=== PATIENT | female | born 1930 | race Caucasian/White ===

== ENCOUNTER 2017-02-03 19:15 | Inpatient (IN) | payer MEDICARE, OTHER ==
[~2017-02-03] VITALS: Ht 149.9 cm; Wt 53.0 kg
[~2017-02-03 19:15] MED LIST: ALEN70TA15 PO; ATOR10TA23 PO; LISI-313 PO; METO-448 PO
[2017-02-03] MEDS ORDERED: ALBUTEROL 0.083% (NEB) 2.5 MG/3 ML AMP INH STA (20:23)
[2017-02-03 20:44] LABS: BASOPHIL # 0.1 10^3/ul (0.0-0.1); BASOPHILS % 0.7 % (0.0-2.0); EOSINOPHILS # 0.2 10^3/ul (0.0-0.5); HEMATOCRIT 38.9 % (37.0-47.0); HEMOGLOBIN 12.8 g/dl (12.0-16.0); LYMPHOCYTES # 3.5 10^3/ul (0.8-2.9); LYMPHOCYTES % 38.3 % (15.0-51.0); MEAN CORPUSCULAR HEMOGLOBIN 28.9 pg (29.0-33.0); MEAN CORPUSCULAR HGB CONC 32.9 g/dl (32.0-37.0); MEAN CORPUSCULAR VOLUME 87.8 fl (82.0-101.0); MEAN PLATELET VOLUME 9.3 fl (7.4-10.4); MONOCYTE # 1.1 10^3/ul (0.3-0.9); MONOCYTES % 12.3 % (0.0-11.0); NEUTROPHIL # 4.1 10^3/ul (1.6-7.5); PLATELET COUNT 275 10^3/UL (140-415); RED BLOOD COUNT 4.43 10^6/ul (4.20-5.40); RED CELL DISTRIBUTION WIDTH 14.5 % (11.5-14.5)
[2017-02-03 20:47] LABS: INR 0.95; PROTIME 12.7 Sec (12.2-14.2)
[2017-02-03 20:48] LABS: PARTIAL THROMBOPLASTIN TIME 29.3 Sec (25.0-35.0)
[2017-02-03 20:53] LABS: CALCIUM 10.2 mg/dl (8.4-10.2); CREATININE 1.23 mg/dl (0.44-1.00); POTASSIUM 4.3 mmol/L (3.5-5.1)
[2017-02-03] MEDS ORDERED: ALEN70TA30 PO (21:12)
[2017-02-03] MEDS ORDERED: CALC-84 PO (21:15)
[2017-02-03] MEDS ORDERED: METO25TA7 PO (21:16)
[2017-02-03] MEDS ORDERED: MULTI PO (21:16)
[2017-02-03] MEDS ORDERED: IODIXANOL LOCM 100 ML BTL ONE (21:33)
[2017-02-03] MEDS ORDERED: SOD CHLORIDE 0.9% 100 ML ONE (21:33)
--- NOTE | 2017-02-03 21:36 | RADRPT ---
PROCEDURE: XR Chest. CLINICAL INDICATION: Dyspnea. TECHNIQUE: Single frontal view of the chest. COMPARISON: None. FINDINGS: Cardiomegaly and atherosclerotic calcifications in the thoracic aorta. Bilateral mid lung and lung base atelectasis versus airspace disease, greater at the left lung base. Findings compatible with m ild to moderate failure. Likely at least moderate hiatal hernia which contains air. Left pleural ef fusion is small. No signs of pneumothorax are seen. The osseous structures and soft tissues are unre markable. IMPRESSION: 1. Mild to moderate failure, with small left pleural effusion. 2. Moderate air-filled hiatal hernia. RPTAT: [facility] Physician Ken Date Time Electronically viewed and signed by Physician Ken on 02/03/2017 21:36 RS/
[2017-02-03] MEDS ORDERED: FUROSEMIDE 40 MG INJ IV ONE (22:30)
--- NOTE | 2017-02-03 22:34 | ERA ---
ER Documentation Chief Complaint Date/Time DATE: 02/03/17 TIME: 22:31 Chief Complaint Cough with bloody sputum HPI This 86-year-old female complains of one-week of cough with bloody sputum. The patient states that she has some frothy type of sputum with blood streaks in it. She says she has had some night sweats and chills but no documented fever. She does have some exertional dyspnea on occasion but no orthopnea. No chest pain no abdominal pain diarrhea. ROS All systems reviewed and are negative except as per history of present illness. Medications Home Meds Reported Medications Metoprolol Succinate* (Toprol XL*) 25 Mg Tab.sr.24h, 25 MG PO DAILY, #30 TAB 02/03/17 Multivitamins* (Theragran*) 1 Tab Tab, 1 TAB PO DAILY, TAB 02/03/17 Calcium Carbonate-Vitamin D3 (Calcium 500 + D Tablet) 1 Each Tablet, 1 TAB PO BID, TAB 02/03/17 Alendronate Sodium* (Fosamax*) 70 Mg Tablet, 70 MG PO Q7D, #4 TAB Q SAT 02/03/17 Discontinued Reported Medications Metoprolol Tartrate* (Lopressor*) 25 Mg Tab, 1 TAB PO DAILY 06/22/12 Atorvastatin (Lipitor) 10 Mg Tablet, 1 TAB PO DAILY 06/22/12 Lisinopril* (Lisinopril*) 5 Mg Tablet, 1 TAB PO DAILY 06/22/12 Alendronate Sodium (Fosamax) 70 Mg Tablet, 1 TAB PO MONTHLY 06/22/12 Allergies Allergies: Coded Allergies: No Known Allergy (Unverified , 02/03/17) PMhx/Soc Medical and Surgical Hx: pt denies Surgical Hx History of Surgery: No Anesthesia Reaction: No Hx Neurological Disorder: No Hx Respiratory Disorders: No Hx Cardiac Disorders: No Hx Psychiatric Problems: No Hx Miscellaneous Medical Probl: Yes (KIDNEY PROBLEM) Hx Alcohol Use: No Hx Substance Use: No Hx Tobacco Use: No Smoking Status: Never smoker FmHx Family History: No coronary disease Physical Exam Vitals Vital Signs Date Time Temp Pulse Resp B/P Pulse Ox O2 Delivery O2 Flow Rate FiO2 02/03/17 22:03 100 18 144/65 95 02/03/17 20:53 75 18 94 21 02/03/17 19:18 97.8 92 18 118/92 93 Physical Exam Const: Well-developed, well-nourished Head: Atraumatic, normocephalic Eyes: Normal Conjunctiva, PERRLA, EOMI, normal sclera, no nystagmus ENT: Normal External Ears, Nose and Mouth, moist mucus membranes. Neck: Full range of motion. No meningismus, no lymphadenopathy. Resp: No increased work of breathing diffuse scattered rhonchi Cardio: Regular rate and rhythm, no murmurs, S1 S2 present Abd: Soft, non tender x 4, non distended. Normal bowel sounds, no guarding or rebound, no pulsitile abdominal masses or bruits Skin: No petechiae or rashes, no ecchymosis , no maculopapular rash Back: No midline or flank tenderness Ext: No cyanosis, or edema, FROM x 4, normal inspection, neurovascularly intact x 4 Neur: Awake and alert, STR 5/5 x 4, sensation intact x 4, no focal findings, cerebellum intact Psych: Normal Mood and Affect Result Diagram: 02/03/17201102/03/172011 Results 24 hrs Laboratory Tests Test 02/03/17 20:12 White Blood Count 9.010^3/ul Red Blood Count 4.4310^6/ul Hemoglobin 12.8g/dl Hematocrit 38.9% Mean Corpuscular Volume 87.8fl Mean Corpuscular Hemoglobin 28.9pg Mean Corpuscular Hemoglobin Concent 32.9g/dl Red Cell Distribution Width 14.5% Platelet Count 72906^3/UL Mean Platelet Volume 9.3fl Neutrophils % 46.0% Lymphocytes % 38.3% Monocytes % 12.3% Eosinophils % 2.0% Basophils % 0.7% Nucleated Red Blood Cells % 0.0/100WBC Neutrophils # 4.110^3/ul Lymphocytes # 3.510^3/ul Monocytes # 1.110^3/ul Eosinophils # 0.210^3/ul Basophils # 0.110^3/ul Nucleated Red Blood Cells # 0.010^3/ul Prothrombin Time 12.7Sec Prothrombin Time Ratio 1.0 INR International Normalized Ratio 0.95 Activated Partial Thromboplast Time 29.3Sec Sodium Level 141mmol/L Potassium Level 4.3mmol/L Chloride Level 99mmol/L Carbon Dioxide Level 28mmol/L Anion Gap 18 Blood Urea Nitrogen 26mg/dl Creatinine 1.23mg/dl Glucose Level 128mg/dl Calcium Level 10.2mg/dl Troponin I < 0.012ng/ml B-Type Natriuretic Peptide 226PG/ML Current Medications Medications (Trade) Dose Ordered Sig/Gardenia Route PRN Reason Start Time Stop Time Status Last Admin Dose Admin Albuterol (Proventil 0.083% (Neb)) 7.5 mg ONCE STAT INH 02/03/17 20:23 02/03/17 20:25 DC 02/03/17 20:53 IV Flush 10 ml 10 ml STK-MED ONCE .ROUTE 02/03/17 21:33 02/03/17 21:34 DC 02/03/17 21:51 Sodium Chloride (NS) 100 ml @ ud STK-MED ONCE .ROUTE 02/03/17 21:33 02/03/17 21:34 DC 02/03/17 21:51 Iodixanol (Visipaque Locm) 100 ml STK-MED ONCE .ROUTE 02/03/17 21:33 02/03/17 21:34 DC 02/03/17 21:51 Furosemide (Lasix) 40 mg ONCE ONCE IV 02/03/17 22:30 02/03/17 22:31 DC 02/03/17 22:49 Procedures/MDM PROCEDURE: XR Chest. CLINICAL INDICATION: Dyspnea. TECHNIQUE: Single frontal view of the chest. COMPARISON: None. FINDINGS: Cardiomegaly and atherosclerotic calcifications in the thoracic aorta. Bilateral mid lung and lung base atelectasis versus airspace disease, greater at the left lung base. Findings compatible with mild to moderate failure. Likely at least moderate hiatal hernia which contains air. Left pleural effusion is small. No signs of pneumothorax are seen. The osseous structures and soft tissues are unremarkable. IMPRESSION: 1. Mild to moderate failure, with small left pleural effusion. 2. Moderate air-filled hiatal hernia. RPTAT: [facility] Physician Ken Date Time Electronically viewed and signed by Physician Ken on 02/03/2017 21:36 RS/ CC: CHARLIE TOLEDO DO Patient has pulmonary edema on her chest x-ray. Will obtain a CT chest if her creatinine is okay This is to rule out an infectious process, i.e. pneumonia or TB possibly. We will give her a dose of Lasix 40 mg IV We will admit for CHF Room air oxygenation is 92% to 94% EKG: Rate/Rhythm: Normal sinus rhythm, left posterior fascicular block QRS, ST, QT: NORMAL MD, QRS, QT] Impression: Abnormal EKG Departure Diagnosis: Primary Impression: CHF (congestive heart failure) Qualified Code: I50.9 - Acute congestive heart failure, unspecified congestive heart failure type Additional Impression: Hypoxia Condition: Stable CHARLIE TOLEDO DO Feb 03, 2017 22:34
[2017-02-03 22:55] LABS: B-TYPE NATRIURETIC PEPTIDE 226 PG/ML (0-450)
[2017-02-03 22:58] LABS: TROPONIN-I < 0.012 ng/ml (0.00-0.12)
--- NOTE | 2017-02-03 23:04 | RADRPT ---
PROCEDURE: CTA chest with contrast utilizing the pulmonary embolus protocol. CLINICAL INDICATION: Dyspnea. TECHNIQUE: CT angiography of the chest was performed after the uneventful intravenous administratio n of 90 cc of Visipaque 320. Coronal and sagittal reformations were performed. 3-D/multiplanar refo rmations were performed by the technologist and at an independent workstation. The total exam CTDI e quals 8.45, 8.46 and the total exam DLP equals 263.49 mGy-cm. Evaluation is partially limited due to motion artifact. One or more of the following dose reduction techniques were used: - Automated exposure control. - Adjustment of the mA and/or kV according to patient size. - Use of iterative reconstruction technique. COMPARISON: Chest x-ray dated 02/03/2017. FINDINGS: Pulmonary vasculature: There are no filling defects through the level of the subsegmental pulmonary arteries. The main pulmonary artery is normal in caliber and there is no evidence of right heart st rain. Lungs, pleura, airways, and thoracic inlet: There is extensive ground-glass opacity throughout both lungs. There is patchy consolidation involving the posterior superior segment of both lower lobes a nd to a less degree within the basilar lower lobes. There is also patchy consolidation in the lingu la. There is no effusion or pneumothorax. The tracheobronchial tree is patent and normal in course and caliber. Cardiovascular system, mediastinum, and lymphatics: The heart is normal in size without pericardial thickening or effusion. There are coronary artery calcifications. There is a bovine aortic arch, a normal anatomical variant. There are atherosclerotic changes of the aorta, which is nonaneurysmal. There are calcified mediastinal lymph nodes, consistent with prior granulomatous disease. there is paratracheal and right hilar adenopathy. There is a large sliding hiatal hernia. Visualized upper abdomen: The visualized upper abdomen is unremarkable. Musculoskeletal system: There is moderate multilevel degenerative enthesopathy. There are no concer harshad osseous lesions. IMPRESSION: 1. No pulmonary emboli through the level of the subsegmental pulmonary arteries. 2. Extensive ground-glass opacity throughout both lungs with patchy areas of consolidation involvin g the superior segments of both lower lobes, lingula, and minimally in the basilar lower lobes. The se findings are most suggestive of multifocal pneumonia. 3. Hilar and mediastinal adenopathy, likely reactive in nature. 4. Large sliding hiatal hernia. 5. Coronary artery calcifications and atherosclerotic changes of the aorta. RPTAT: HLBP .Donn Tuttle MD, Date Time Electronically viewed and signed by .Donn Tuttle MD, on 02/03/2017 23:04 .P/
[2017-02-03] MEDS ORDERED: ONDANSETRON 4 MG INJ IV PRN (23:30)
[2017-02-03] MEDS ORDERED: ACETAMINOPHEN 325 MG TAB PO PRN (23:30)
[2017-02-04] VITALS (9 sets, daily range): BP systolic 101–148; BP diastolic 55–63; PULSE 77–107; RESP 18–22; Ht 149.9 cm; Wt 53.0 kg
[2017-02-04] MEDS ORDERED: ALBUTEROL/IPRATROPIUM (NEB) 3 ML AMP HHN PRN (05:30)
[2017-02-04] MEDS ORDERED: HYDROCODONE/APAP (5/325) TAB PO PRN (05:30)
[2017-02-04] MEDS ORDERED: ONDANSETRON 4 MG INJ IV PRN (05:30)
[2017-02-04] MEDS ORDERED: NACL 0.9% 3 ML SYG IV SCH (05:30)
[2017-02-04] MEDS ORDERED: VANCOMYCIN IV PER PHARMACY XX SCH (05:30)
[2017-02-04] MEDS ORDERED: ACETAMINOPHEN 325 MG TAB PO PRN (05:30)
[2017-02-04] MEDS ORDERED: morphine 4 MG/ML VIAL IV PRN (05:30)
[2017-02-04] MEDS ORDERED: LORAZEPAM 0.5 MG TAB PO PRN (05:30)
[2017-02-04] MEDS: PIPER-TAZO 3.375 GM IV (PMX) 100 ML IVPB SCH ×3 (05:48→23:04)
[2017-02-04] MEDS ORDERED: VANCOMYCIN 1 GM in NS 250 ML IVPB ONE (07:30)
[2017-02-04 07:52] LABS: ABNORMAL IP MESSAGE 1; HEMATOCRIT 41.9 % (37.0-47.0); HEMOGLOBIN 13.1 g/dl (12.0-16.0); MEAN CORPUSCULAR HEMOGLOBIN 27.7 pg (29.0-33.0); MEAN CORPUSCULAR HGB CONC 31.3 g/dl (32.0-37.0); MEAN CORPUSCULAR VOLUME 88.6 fl (82.0-101.0); MEAN PLATELET VOLUME 9.1 fl (7.4-10.4); NUCLEATED RED BLOOD CELLS% 0.9 /100WBC (0.0-0.0); PLATELET COUNT 236 10^3/UL (140-415); RED BLOOD COUNT 4.73 10^6/ul (4.20-5.40); RED CELL DISTRIBUTION WIDTH 14.8 % (11.5-14.5); WHITE BLOOD COUNT 2.2 10^3/ul (4.8-10.8)
[2017-02-04 08:05] LABS: POSITIVE DIFF @See below
[2017-02-04 08:14] LABS: CREATINE KINASE < 20 IU/L (23-200)
[2017-02-04 08:27] LABS: CK-MB < 0.22 ng/ml (0.0-2.4); TROPONIN-I < 0.012 ng/ml (0.00-0.12)
[2017-02-04 08:45] LABS: ALBUMIN 4.3 g/dl (3.3-4.9); ALBUMIN/GLOBULIN RATIO 1.19; BILIRUBIN,INDIRECT 0.4 mg/dl (0-1.1); BILIRUBIN,TOTAL 0.4 mg/dl (0.2-1.3); CREATININE 1.4 mg/dl (0.44-1.00); MAGNESIUM 2.1 mg/dl (1.7-2.5); POTASSIUM 4.2 mmol/L (3.5-5.1); TOTAL PROTEIN 7.9 g/dl (6.1-8.1)
--- NOTE | 2017-02-04 09:03 | HP ---
Date/Time of Note Date/Time of Note DATE: 02/04/17 TIME: 08:54 Assessment/Plan Assessment/Plan Assessment/Plan 1. Multifocal pneumonia - Broad-spectrum and IV antibiotics - will attempt to send sputum for Gram stain and culture - will check blood cultures as well - ID and pulmonary consult was needed 2. Presumed acute kidney injury: -Start IV fluid -Nephrology consult 3. CHF -We will obtain a 2D echo and place a cardiology consult 4. Hypertension: Blood pressure within goal -Antihypertensives as needed HPI/ROS Admit Date/Time Admit Date/Time Feb 03, 2017 at 23:22 Hx of Present Illness This is an 86-year-old female with a history of hypertension, CHF, probable renal insufficiency who presented to the emergency department complaining of cough and subjective fever/chills. Symptom began a week ago and has been progressively getting worse. Cough is at times productive with occasional streaks of blood. In the ER, CXR showed Mild to moderate failure, with small left pleural effusion. Moderate air-filled hiatal hernia. CT pulmonary angiogram shows Extensive ground-glass opacity throughout both lungs with patchy areas of consolidation involving the superior segments of both lower lobes, lingula, and minimally in the basilar lower lobes. These findings are most suggestive of multifocal pneumonia. Hilar and mediastinal adenopathy, likely reactive in nature. Large sliding hiatal hernia. Initial vitals were stable. Labs show a BUN of 26 and a creatinine of 1.23 otherwise CBC and BMP were within normal limits. WBC was 9.0. . PMH/Family/Social Social History Smoking Status: Never smoker Exam/Review of Systems Vital Signs Vitals Vital Signs Date Time Temp Pulse Resp B/P Pulse Ox O2 Delivery O2 Flow Rate FiO2 02/04/17 07:56 100.6 107 22 148/63 98 Nasal Cannula 2.0 02/03/17 20:53 21 Labs Result Diagram: 02/04/17 0725 02/04/17 0725 Medications Medications Current Medications Lorazepam (Ativan) 0.5 mg Q8H PRN PO ANXIETY; Start 02/04/17 at 05:30 Ondansetron HCl (Zofran Inj) 4 mg Q6H PRN IV NAUSEA AND/OR VOMITING; Start 02/04 at 05:30 Acetaminophen (Tylenol Tab) 650 mg Q6H PRN PO PAIN LEVEL 1-3 OR FEVER; Start at 05:30 Acetaminophen/ Hydrocodone Bitart ([place] (5/325)) 1 tab Q6H PRN PO PAIN LEVEL 4 -6; Start 02/04/17 at 05:30 Morphine Sulfate (morphine) 2 mg Q4H PRN IV PAIN LEVEL 7-10; Start 02/04/17 at 05:30 Heparin Sodium (Porcine) (Heparin (5000 Units/0.5 ml)) 5,000 unit Q12 SC ; Start 02/04/17 at 09:00 Multivitamins Therapeutic (Theragran) 1 tab DAILY PO ; Start 02/04/17 at 09:00 Calcium/Vitamin D 1 tab 1 tab BID PO ; Start 02/04/17 at 09:00 Piperacillin Sod/ Tazobactam Sod 100 ml @ 200 mls/hr Q8 IVPB Last administered on 02/04/17 05:48; Admin Dose 200 MLS/HR; Start 02/04/17 at 06:00 Vancomycin HCl 250 ml @ 125 mls/hr ONCE ONCE IVPB Last administered on 08:38; Admin Dose 125 MLS/HR; Start 02/04/17 at 07:30; Stop 02/04/17 at 09:29 Vancomycin HCl/ Sodium Chloride (Vancocin/NS) 150 ml @ 75 mls/hr Q24H IVPB ; Start 02/05/17 at 07:30 MEGAN HONG MD Feb 04, 2017 09:03
[2017-02-04 09:14] LABS: ANISOCYTOSIS 2+ (0-0); ERYTHROBLAST% (NRBC) (M) 5 % (0-0); GIANT THROMBO% (M) 2 % (0-0); MICROCYTOSIS 2+ (0-0); MONOCYTES % (M) 4 % (0-11); PLATELET ESTIMATE NORMAL; POLYCHROMASIA 3+ (0-0)
[2017-02-04] MEDS: MULTIVITAMINS THERAPEUTIC TAB PO SCH (10:22)
[2017-02-04] MEDS: CALCIUM/VITAMIN D (500/200) TAB PO SCH ×2 (10:22→20:29)
[2017-02-04] MEDS: HEPARIN 5,000 UNIT/0.5 ML VIAL SC SCH ×2 (10:23→20:36)
[2017-02-04] MEDS: ALBUMIN HUMAN 25% 100 ML IV SCH ×2 (11:17→19:43)
--- NOTE | 2017-02-04 11:51 | RADRPT ---
PROCEDURE: US Renal CLINICAL INDICATION: Acute renal insufficiency. TECHNIQUE: Multiple sonographic images of the kidneys and bladder were obtained. Evaluation of th e kidneys and bladder was performed as well with love scale and color and Doppler evaluation using a curved array transducer. The images were reviewed on a high-resolution PACS workstation. COMPARISON: No prior studies are available for comparison. FINDINGS: The right kidney measures 7.0 cm. The left kidney measures 7.5 cm. Kidneys are small and demonstrate echogenic renal cortex bilaterally There is no mass, calculus, or obstructive uropathy. No perinephric fluid collection is seen. Bladder is suboptimally distended. IMPRESSION: 1. Small echogenic kidneys consistent with medical renal disease. RPTAT: [facility] Physician Martin Date Time Electronically viewed and signed by Physician Martin on 02/04/2017 11:51 /
[2017-02-04 12:55] LABS: CREATINE KINASE 24 IU/L (23-200)
[2017-02-04 13:09] LABS: CK-MB < 0.22 ng/ml (0.0-2.4); TROPONIN-I < 0.012 ng/ml (0.00-0.12)
--- NOTE | 2017-02-04 13:10 | CONS ---
Date/Time of Note Date/Time of Note DATE: 02/04/17 TIME: 13:05 Assessment/Plan Assessment/Plan Additional Assessment/Plan Chest x-ray was reviewed from yesterday which is showing minimal patchy infiltrates in lung bases bilaterally. CT chest was reviewed also which is showing similar findings. Assessment recommendations; 1. Patient admitted with what appears to be bilateral lower lobe community- acquired bronchopneumonia. 2. History of renal insufficiency with mild elevation in serum creatinine. 3. Mild elevation in BNP level not indicative of CHF. Discontinue vancomycin. Continue Zosyn. Add Levaquin 250 mg IV daily. Patient will also need to have an echocardiogram done. Obtain follow-up chest x -ray in 48 hours. Consultation Date/Type/Reason Admit Date/Time Feb 03, 2017 at 23:22 Date of Consultation: Feb 04, 2017 Type of Consultation: Pulmonary Reason for Consultation Pulmonary consultation requested for evaluation of pneumonia. History of presenting any; patient is a very pleasant 86-year-old lady who was admitted yesterday with complaints of shortness of breath going on for the last few days. Patient also has been having some cough with low-grade fever. According to the patient's niece who was present in the room the patient was doing fine until the symptoms started 2 days ago and patient does not have any chronic respiratory illnesses. Patient is feeling somewhat better now denies any chest pain, denies any further fever or chills. Denies any wheezing. Any sputum production. No hemoptysis. Past medical history; next 1. Patient with history of hypertension. 2. History of renal failure in the past, not requiring hemodialysis. 3. No history of any known coronary artery disease or congestive heart failure. 4. No spinal surgeries. 5. Most of any diabetes, asthma or any history of pneumonia. Medications; reviewed. Allergies; none. Social history; patient never smoked. Family history; patient is a she has 1 son. 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 Review of systems; denies any headache, visual changes, sinus symptoms. Denies any chest pain, shortness of breath is improved. Denies any wheezing, hemoptysis or sputum production. Denies any abdominal pain, nausea vomiting. Denies any edema. Denies any melena, denies any urinary symptoms. Denies any weight loss. Denies any skin changes. General exam; elderly woman, awake and alert. Currently in no distress. Social History Smoking Status: Never smoker Exam/Review of Systems Vital Signs Vitals Vital Signs Date Time Temp Pulse Resp B/P Pulse Ox O2 Delivery O2 Flow Rate FiO2 02/04/17 12:45 92 20 128/56 95 Nasal Cannula 2.0 02/04/17 10:30 98.3 02/03/17 20:53 21 Exam HEENT exam; supple neck, no JVD. No lymphadenopathy. Midline trachea. No thyromegaly. Pharynx is clear. Patient wears dentures. Pupils are midsize and reactive to light bilaterally. Chest exam; diminished breath on lung bases with very minimal crackles at lung bases bilaterally. S1-S2 audible, no murmurs. Regular rhythm. Abdomen exam; soft, nondistended. No organomegaly. Bowel sounds audible. Extremity exam; no peripheral edema. Pulses 1+ bilaterally. No clubbing. SIGNALS OFFICER exam; no focal deficit. Results Result Diagram: 02/04/17 0725 02/04/17 0725 Results 24 hrs Laboratory Tests Test 02/03/17 20:12 02/04/17 07:25 02/04/17 12:20 White Blood Count 9.0 2.2 #L Red Blood Count 4.43 4.73 Hemoglobin 12.8 13.1 Hematocrit 38.9 41.9 Mean Corpuscular Volume 87.8 88.6 Mean Corpuscular Hemoglobin 28.9 L 27.7 L Mean Corpuscular Hemoglobin Concent 32.9 31.3 L Red Cell Distribution Width 14.5 14.8 H Platelet Count 275 236 Mean Platelet Volume 9.3 9.1 Neutrophils % 46.0 Lymphocytes % 38.3 Monocytes % 12.3 H Eosinophils % 2.0 Basophils % 0.7 Nucleated Red Blood Cells % 0.0 5 H Neutrophils # 4.1 Lymphocytes # 3.5 H Monocytes # 1.1 H Eosinophils # 0.2 Basophils # 0.1 Nucleated Red Blood Cells # 0.0 Prothrombin Time 12.7 Prothrombin Time Ratio 1.0 INR International Normalized Ratio 0.95 Activated Partial Thromboplast Time 29.3 Sodium Level 141 143 Potassium Level 4.3 4.2 Chloride Level 99 95 L Carbon Dioxide Level 28 26 Anion Gap 18 H 26 #H Blood Urea Nitrogen 26 H 25 H Creatinine 1.23 H 1.40 H Glucose Level 128 127 Calcium Level 10.2 10.0 Troponin I < 0.012 < 0.012 Pending B-Type Natriuretic Peptide 226 Segmented Neutrophils % (Manual) 18 L Band Neutrophils % (Manual) 5 H Lymphocytes % (Manual) 73 H Monocytes % (Manual) 4 Neutrophils # (Manual) 0.4 L Band Neutrophils # 0.1 Absolute Lymphocytes (Manual) 1.6 Absolute Monocytes (Manual) 0.0 L Smudge Cells % 4 H Thrombocytosis 2 H Platelet Estimate NORMAL Polychromasia 3+ Anisocytosis 2+ Microcytosis 2+ Magnesium Level 2.1 Total Bilirubin 0.4 Direct Bilirubin 0.00 Indirect Bilirubin 0.4 Aspartate Amino Transf (AST/SGOT) 33 Alanine Aminotransferase (ALT/SGPT) 29 Alkaline Phosphatase 77 Creatine Kinase < 20 L 24 Creatine Kinase Index Pending Creatinine Kinase MB (Mass) < 0.22 Pending Total Protein 7.9 Albumin 4.3 Globulin 3.60 H Albumin/Globulin Ratio 1.19 Medications Medications Current Medications Lorazepam (Ativan) 0.5 mg Q8H PRN PO ANXIETY; Start 02/04/17 at 05:30 Ondansetron HCl (Zofran Inj) 4 mg Q6H PRN IV NAUSEA AND/OR VOMITING; Start 02/04 at 05:30 Acetaminophen (Tylenol Tab) 650 mg Q6H PRN PO PAIN LEVEL 1-3 OR FEVER; Start at 05:30 Acetaminophen/ Hydrocodone Bitart ([place] (5/325)) 1 tab Q6H PRN PO PAIN LEVEL 4 -6; Start 02/04/17 at 05:30 Morphine Sulfate (morphine) 2 mg Q4H PRN IV PAIN LEVEL 7-10; Start 02/04/17 at 05:30 Heparin Sodium (Porcine) (Heparin (5000 Units/0.5 ml)) 5,000 unit Q12 SC Last administered on 02/04/17 10:23; Admin Dose 5,000 UNIT; Start 02/04/17 at 09:00 Multivitamins Therapeutic (Theragran) 1 tab DAILY PO Last administered on 10:22; Admin Dose 1 TAB; Start 02/04/17 at 09:00 Calcium/Vitamin D 1 tab 1 tab BID PO Last administered on 02/04/17 10:22; Admin Dose 1 TAB; Start 02/04/17 at 09:00 Piperacillin Sod/ Tazobactam Sod 100 ml @ 200 mls/hr Q8 IVPB Last administered on 02/04/17 05:48; Admin Dose 200 MLS/HR; Start 02/04/17 at 06:00 Albumin Human (Albumin Human 25%) 100 ml @ 100 mls/hr Q8H IV Last administered on 02/04/17 11:17; Admin Dose 100 MLS/HR; Start 02/04/17 at 11:00; Stop 02/05/17 at 03:59 ISIDRA SHEA Feb 04, 2017 13:10
--- NOTE | 2017-02-04 14:20 | CONS ---
DATE OF ADMISSION: 02/03/2017 DATE OF CONSULTATION: 02/04/2017 REASON FOR CONSULTATION: Acute kidney injury. REFERRING PHYSICIAN:: Dr. Eller HISTORY OF PRESENT ILLNESS: This is an 86-year-old female with a past medical history of hypertension, history of CHF, history of chronic kidney disease with unknown baseline creatinine, who presents to [facility] with complaints of cough, subjective fevers, chills. The patient's symptoms began about one week ago however, she progressively got worse with increased shortness of breath. As a result, she came to the emergency room for evaluation. Upon arrival, the patient had a chest x-ray, which initially showed [id number] failure. The patient had also had a CT angio which showed opacities throughout both lungs consistent with possible multifocal pneumonia. Other laboratory data drawn in the emergency room showed a white count 2.2, hemoglobin 13.1. Patient had a BUN of 26, creatinine 1.23. In the emergency room patient was given diuretic therapy and IV antibiotics. In terms of patient's renal history, per patient's family, she does have underlying CKD, does not does not know what her baseline renal function is. She has seen a kidney doctor but does not know the name of the sales representative [employer]. The patient denies any rashes, any frothy urine. PAST MEDICAL HISTORY: As stated above. History of CKD, history of CHF, history of hypertension. PAST SURGICAL HISTORY: None. ALLERGIES: NO KNOWN DRUG ALLERGIES. FAMILY HISTORY: Noncontributory. SOCIAL HISTORY: Does not drink, smoke, or do drugs. MEDICATION: The patient's medications have been reviewed. REVIEW OF SYSTEMS: Fourteen review of systems was conducted. Pertinent positives state in HPI, otherwise negative. PHYSICAL EXAMINATION: VITAL SIGNS: Blood pressure is 148/63, respirations 22, pulse 107, temperature 98.6. HEENT: Head is normocephalic. NECK: Supple. HEART: Regular rate. LUNGS: Diminished breath sounds at the base. ABDOMEN: Soft, nontender to palpation. No guarding. No rebound. EXTREMITIES: Negative for clubbing, cyanosis. No edema. DERMATOLOGIC: Clean. No rashes. MUSCULOSKELETAL: No joint effusion. NEUROLOGIC: No focal deficits. DATA: Laboratory data shows sodium 143, potassium 4.2, chloride 95, BUN 25, creatinine 1.40. White count 2.2, hemoglobin 13.1, hematocrit 41.9, platelet count 236. IMAGING: Imaging studies in HPI. ASSESSMENT AND PLAN: This is a 86-year-old female who presents with: 1. Nonoliguric acute kidney injury on top of chronic kidney disease with unknown baseline creatinine. Etiology of current CHUYITA may be multifactorial secondary to hemodynamics, questionable contrast- associated nephropathy. The patient did receive CT angio and diuretic therapy. Plan at this point is to do a full evaluation. Will check UA with microanalysis. Will check urine electrolytes. Will check renal ultrasound. Would recommend to hold diuretic therapy. Will give the patient gentle IV hydration with albumin. Otherwise continue supportive care. Renally dose medications. Avoid nephrotoxin. 2. Sepsis secondary to multifocal pneumonia. Continue current antibiotic regimen. Follow up cultures. 3. History of congestive heart failure. The patient's CT angio shows no evidence of overt heart failure. At this point, I would recommend to hold diuretic therapy. Will continue gentle IV fluids. Follow up 2D echo. Monitor closely. 4. History of hypertension. Continue current blood pressure regimen. 5. Thank you, Dr. Escalante, for this interesting consult. It will be a pleasure to follow patient with you throughout the hospital course. Dictated By: David Greenfield DO /[email or web address] /Document#: [id number]
--- NOTE | 2017-02-04 16:02 | RADRPT ---
Echocardiogram Report Patient Name: KEITH BURNS Gender: Female Date: 1930 Study Date: 04-Feb-2017 Care Coordination Manager: Vladimir Ma RUST Location: [facility] Ref. Physician: MEGAN HONG Quality: Technically Difficult Study Procedures: Transthoracic echocardiogram with complete 2D, M-Mode, and doppler examination. Indications: Congestive Heart Failure. 2D/M Mode Doppler Measurement Value Normal Ranges Measurement Value Normal Ranges LVIDd 2D 2.6 3.5 - 5.6 cm AV Peak Jonathan 1.8 m/sec LVIDs 2D 1.6 2.1 - 4.1 cm AV Peak PG 13.1 mmHg LVPWd 2D 1.0 0.6 - 1.1 cm LVOT Peak Jonathan 1.3 m/sec IVSd 2D 1.2 0.6 - 1.1 cm LVOT Peak PG 7.2 mmHg AoR Diam 2D 2.4 2.0 - 3.7 cm MV E Peak Jonathan 0.9 m/sec EDV 2D 23.7 cm3 MV A Peak Jonathan 1.0 m/sec ESV 2D 3.8 cm3 MV E/A 0.9 LA Dimen 2D 1.9 2.3 - 4.0 cm MV Decel Time 191 msec MV Decel [place] 5 MV E/A 0.9 TR Peak Jonathan 2.6 m/sec TR Peak PG 27.7 mmHg RVSP 31.0 mmHg Findings Left Ventricle: Normal left ventricular systolic function. Normal left ventricular cavity size. Mild concentric left ventricular hypertrophy. Ejection fraction is visually estimated at 6570 %. Tissue Doppler/Mitral Doppler indices are consistent with impaired relaxation (Stage I diastolic dysfunction). Right Ventricle: Normal right ventricular size. Normal right ventricular systolic function. Left Atrium: Not well visualized. Right Atrium: The right atrium is normal in size. Mitral Valve: Normal appearance and function of the mitral valve with trace physiologic regurgitation. Aortic Valve: Normal appearance of the aortic valve. No significant aortic stenosis or insufficiency. Tricuspid Valve: Normal appearance of the tricuspid valve. Estimated peak PA systolic pressure 31 mmHg. There is mild tricuspid regurgitation. Pulmonic Valve: Normal pulmonic valve appearance. There is trace pulmonic regurgitation. Pericardium: Normal pericardium with no significant pericardial effusion. Aorta: Normal aortic root. IVC: Normal size and normal respiratory collapse consistent with normal right atrial pressure. Conclusions 1.The left ventricle is normal in size and systolic function. 2.Estimated left ventricular ejection fraction of 65-70%. 3.Mild concentric left ventricular hypertrophy. Grade 1 diastolic dysfunction. Electronically Signed By: Vimal Dumont 04-Feb-2017 16:01:08 Patient Name: KEITH BURNS Study Date: 04-Feb-2017 [id number]
--- NOTE | 2017-02-04 16:36 | CONS ---
Date/Time of Note Date/Time of Note DATE: 02/04/17 TIME: 16:30 Assessment/Plan Assessment/Plan Chief Complaint/Hosp Course Assessment: Pneumonia - on antibiotics Chronic diastolic heart failure - status post diuretics, appears clinically euvolemic to dry Hypertension Acute kidney injury on chronic kidney disease Recommendations: -echocardiogram showed LVEF 65-70%, mild LVH, grade 1 diastolic dysfunction -hold off on additional diuresis -monitor blood pressure, resume anti-hypertensive medications as needed Problems: Consultation Date/Type/Reason Admit Date/Time Feb 03, 2017 at 23:22 Type of Consultation: Cardiology Reason for Consultation congestive heart failure Hx of Present Illness The patient is an 86 year-old female who presents with cough, subjective fevers , and chills. Chest CTA showed no evidence of pulmonary embolism, but did show evidence of multifocal pneumonia. 14 point review of systems negative other than per HPI. Past Medical History Congestive heart failure Hypertension Chronic kidney disease Past Surgical History Past Surgical Hx: no surgical history Family History Significant Family History: no pertinent family hx (noncontributory given advanced age) Social History Alcohol Use: none Smoking Status: Never smoker Drug Use: none Exam/Review of Systems Vital Signs Vitals Vital Signs Date Time Temp Pulse Resp B/P Pulse Ox O2 Delivery O2 Flow Rate FiO2 02/04/17 16:18 97.8 80 18 107/55 93 02/04/17 15:54 Nasal Cannula 2.0 02/03/17 20:53 21 Exam Constitutional: alert, well developed Psych: nl mood/affect, no complaints Head: atraumatic, normocephalic Eyes: nl conjunctiva, nl lids ENMT: nl external ears & nose, nl nasal mucosa & septum Neck: non-tender, supple, No jvd Respiratory: diminished breath sounds, No wheezing Cardiovascular: regular rate and rhythm, No murmurs/extra sounds Gastrointestinal: non-tender, soft Musculoskeletal: nl extremities to inspection Extremities: No clubbing, No cyanosis, No edema Neurological: nl mental status, nl speech Skin: nl turgor Results Result Diagram: 02/04/17 0725 02/04/17 0725 Results 24 hrs Laboratory Tests Test 02/03/17 20:12 02/04/17 07:25 02/04/17 12:20 White Blood Count 9.0 2.2 #L Red Blood Count 4.43 4.73 Hemoglobin 12.8 13.1 Hematocrit 38.9 41.9 Mean Corpuscular Volume 87.8 88.6 Mean Corpuscular Hemoglobin 28.9 L 27.7 L Mean Corpuscular Hemoglobin Concent 32.9 31.3 L Red Cell Distribution Width 14.5 14.8 H Platelet Count 275 236 Mean Platelet Volume 9.3 9.1 Neutrophils % 46.0 Lymphocytes % 38.3 Monocytes % 12.3 H Eosinophils % 2.0 Basophils % 0.7 Nucleated Red Blood Cells % 0.0 5 H Neutrophils # 4.1 Lymphocytes # 3.5 H Monocytes # 1.1 H Eosinophils # 0.2 Basophils # 0.1 Nucleated Red Blood Cells # 0.0 Prothrombin Time 12.7 Prothrombin Time Ratio 1.0 INR International Normalized Ratio 0.95 Activated Partial Thromboplast Time 29.3 Sodium Level 141 143 Potassium Level 4.3 4.2 Chloride Level 99 95 L Carbon Dioxide Level 28 26 Anion Gap 18 H 26 #H Blood Urea Nitrogen 26 H 25 H Creatinine 1.23 H 1.40 H Glucose Level 128 127 Calcium Level 10.2 10.0 Troponin I < 0.012 < 0.012 < 0.012 B-Type Natriuretic Peptide 226 Segmented Neutrophils % (Manual) 18 L Band Neutrophils % (Manual) 5 H Lymphocytes % (Manual) 73 H Monocytes % (Manual) 4 Neutrophils # (Manual) 0.4 L Band Neutrophils # 0.1 Absolute Lymphocytes (Manual) 1.6 Absolute Monocytes (Manual) 0.0 L Smudge Cells % 4 H Thrombocytosis 2 H Platelet Estimate NORMAL Polychromasia 3+ Anisocytosis 2+ Microcytosis 2+ Magnesium Level 2.1 Total Bilirubin 0.4 Direct Bilirubin 0.00 Indirect Bilirubin 0.4 Aspartate Amino Transf (AST/SGOT) 33 Alanine Aminotransferase (ALT/SGPT) 29 Alkaline Phosphatase 77 Creatine Kinase < 20 L 24 Creatine Kinase Index 0.9 Creatinine Kinase MB (Mass) < 0.22 < 0.22 Total Protein 7.9 Albumin 4.3 Globulin 3.60 H Albumin/Globulin Ratio 1.19 Medications Medications Current Medications Lorazepam (Ativan) 0.5 mg Q8H PRN PO ANXIETY; Start 02/04/17 at 05:30 Ondansetron HCl (Zofran Inj) 4 mg Q6H PRN IV NAUSEA AND/OR VOMITING; Start 02/04 at 05:30 Acetaminophen (Tylenol Tab) 650 mg Q6H PRN PO PAIN LEVEL 1-3 OR FEVER; Start at 05:30 Acetaminophen/ Hydrocodone Bitart ([place] (5/325)) 1 tab Q6H PRN PO PAIN LEVEL 4 -6; Start 02/04/17 at 05:30 Morphine Sulfate (morphine) 2 mg Q4H PRN IV PAIN LEVEL 7-10; Start 02/04/17 at 05:30 Heparin Sodium (Porcine) (Heparin (5000 Units/0.5 ml)) 5,000 unit Q12 SC Last administered on 02/04/17 10:23; Admin Dose 5,000 UNIT; Start 02/04/17 at 09:00 Multivitamins Therapeutic (Theragran) 1 tab DAILY PO Last administered on 10:22; Admin Dose 1 TAB; Start 02/04/17 at 09:00 Calcium/Vitamin D 1 tab 1 tab BID PO Last administered on 02/04/17 10:22; Admin Dose 1 TAB; Start 02/04/17 at 09:00 Piperacillin Sod/ Tazobactam Sod 100 ml @ 200 mls/hr Q8 IVPB Last administered on 02/04/17 14:09; Admin Dose 200 MLS/HR; Start 02/04/17 at 06:00 Albumin Human 100 ml @ 100 mls/hr Q8H IV Last administered on 02/04/17 11:17; Admin Dose 100 MLS/HR; Start 02/04/17 at 11:00; Stop 02/05/17 at 03:59 Levofloxacin/ Dextrose (Levaquin 250 Mg/ D5W 50 ml (Pmx)) 50 ml @ 50 mls/hr Q24H IVPB ; Start 02/04/17 at 14:30 MELISSA VELEZ MD Feb 04, 2017 16:36
[2017-02-04] MEDS: LEVOFLOXACIN 250MG/D5W (PMX) 50 ML IVPB SCH (18:03)
[2017-02-05] VITALS (13 sets, daily range): BP systolic 101–133; BP diastolic 55–68; PULSE 65–98; RESP 17–19
[2017-02-05] MEDS: ALBUMIN HUMAN 25% 100 ML IV SCH (06:03)
[2017-02-05] MEDS: PIPER-TAZO 3.375 GM IV (PMX) 100 ML IVPB SCH ×3 (06:03→21:29)
[2017-02-05] MEDS ORDERED: VANCOMYCIN 750 MG in SOD CHLORIDE 0.9% 150 ML IVPB SCH (07:30)
[2017-02-05 08:21] LABS: BASOPHILS % 0.2 % (0.0-2.0); EOSINOPHILS # 0.1 10^3/ul (0.0-0.5); EOSINOPHILS % 1.1 % (0.0-7.0); HEMATOCRIT 31.7 % (37.0-47.0); HEMOGLOBIN 10.1 g/dl (12.0-16.0); LYMPHOCYTES # 1.9 10^3/ul (0.8-2.9); MEAN CORPUSCULAR HEMOGLOBIN 27.8 pg (29.0-33.0); MEAN CORPUSCULAR HGB CONC 31.9 g/dl (32.0-37.0); MEAN CORPUSCULAR VOLUME 87.3 fl (82.0-101.0); MEAN PLATELET VOLUME 9.6 fl (7.4-10.4); MONOCYTE # 0.5 10^3/ul (0.3-0.9); MONOCYTES % 10.6 % (0.0-11.0); NEUTROPHIL # 2.1 10^3/ul (1.6-7.5); NEUTROPHILS % 45.9 % (39.0-77.0); PLATELET COUNT 163 10^3/UL (140-415); RED BLOOD COUNT 3.63 10^6/ul (4.20-5.40); RED CELL DISTRIBUTION WIDTH 14.6 % (11.5-14.5); WHITE BLOOD COUNT 4.5 10^3/ul (4.8-10.8)
[2017-02-05] MEDS: CALCIUM/VITAMIN D (500/200) TAB PO SCH ×2 (08:24→21:29)
[2017-02-05] MEDS: MULTIVITAMINS THERAPEUTIC TAB PO SCH (08:24)
[2017-02-05] MEDS: HEPARIN 5,000 UNIT/0.5 ML VIAL SC SCH ×2 (08:25→21:50)
[2017-02-05 08:40] LABS: CALCIUM 10.2 mg/dl (8.4-10.2); CREATININE 1.41 mg/dl (0.44-1.00); MAGNESIUM 2.2 mg/dl (1.7-2.5); PHOSPHORUS 3.9 mg/dl (2.5-4.9); POTASSIUM 3.7 mmol/L (3.5-5.1)
[2017-02-05 09:05] LABS: POSITIVE DIFF @See below
[2017-02-05] MEDS ORDERED: morphine 2 MG INJ IV PRN (11:00)
--- NOTE | 2017-02-05 13:28 | CONS ---
Date/Time of Note Date/Time of Note DATE: 02/05/17 TIME: 13:27 Assessment/Plan Assessment/Plan Chief Complaint/Hosp Course 1. Nonoliguric acute kidney injury on top of chronic kidney disease with unknown baseline creatinine. Etiology of current CHUYITA may be multifactorial secondary to hemodynamics, questionable contrast- associated nephropathy. The patient did receive CT angio and diuretic therapy. Plan at this point is to do a full evaluation. Will check UA with microanalysis. Will check urine electrolytes. Will check renal ultrasound. Would recommend to hold diuretic therapy. Will give the patient gentle IV hydration with albumin. Otherwise continue supportive care. Renally dose medications. Avoid nephrotoxin. 2. Sepsis secondary to multifocal pneumonia. Continue current antibiotic regimen. Follow up cultures. 3. History of congestive heart failure. The patient's CT angio shows no evidence of overt heart failure. At this point, I would recommend to hold diuretic therapy. Will continue gentle IV fluids. Follow up 2D echo. Monitor closely. 4. History of hypertension. Continue current blood pressure regimen. 5. Thank you, Dr. Escalante, for this interesting consult. It will be a pleasure to follow patient with you throughout the hospital course. Problems: Consultation Date/Type/Reason Admit Date/Time Feb 03, 2017 at 23:22 Initial Consult Date 02/04/17 Type of Consultation: nephrology 24 HR Interval Summary Free Text/Dictation pt. seen and examined seen by cards off diuretics, good uop. less sob Exam/Review of Systems Vital Signs Vitals Vital Signs Date Time Temp Pulse Resp B/P Pulse Ox O2 Delivery O2 Flow Rate FiO2 02/05/17 12:10 98 02/05/17 11:44 97.9 18 102/62 94 02/05/17 08:10 Nasal Cannula 1.0 02/03/17 20:53 21 Intake and Output 02/04/17 02/04/17 02/05/17 15:00 23:00 07:00 Intake Total 480 ml 100 ml Balance 480 ml 100 ml Exam Psych: nl mood/affect, no complaints Head: atraumatic, normocephalic Eyes: EOMI, PERRL, nl conjunctiva, nl lids, nl sclera ENMT: nl external ears & nose, nl lips & teeth, nl nasal mucosa & septum Neck: non-tender, supple Respiratory: diminished breath sounds Cardiovascular: nl pulses, regular rate and rhythm Gastrointestinal: nl liver, spleen, non-tender, soft Neurological: ORDER RUNNER II-XII intact, nl mental status, nl speech, nl strength Results Result Diagram: 02/05/17 0755 02/05/17 0755 Results 24 hrs Laboratory Tests Test 02/05/17 07:55 White Blood Count 4.5 #L Red Blood Count 3.63 #L Hemoglobin 10.1 #L Hematocrit 31.7 #L Mean Corpuscular Volume 87.3 Mean Corpuscular Hemoglobin 27.8 L Mean Corpuscular Hemoglobin Concent 31.9 L Red Cell Distribution Width 14.6 H Platelet Count 163 # Mean Platelet Volume 9.6 Neutrophils % 45.9 Lymphocytes % 42.0 Monocytes % 10.6 Eosinophils % 1.1 Basophils % 0.2 Nucleated Red Blood Cells % 0.0 Neutrophils # 2.1 Lymphocytes # 1.9 Monocytes # 0.5 Eosinophils # 0.1 Basophils # 0.0 Nucleated Red Blood Cells # 0.0 Sodium Level 143 Potassium Level 3.7 Chloride Level 97 Carbon Dioxide Level 28 Anion Gap 22 H Blood Urea Nitrogen 24 H Creatinine 1.41 H Glucose Level 93 Calcium Level 10.2 Phosphorus Level 3.9 Magnesium Level 2.2 Medications Medications Current Medications Lorazepam (Ativan) 0.5 mg Q8H PRN PO ANXIETY; Start 02/04/17 at 05:30 Ondansetron HCl (Zofran Inj) 4 mg Q6H PRN IV NAUSEA AND/OR VOMITING; Start 02/04 at 05:30 Acetaminophen (Tylenol Tab) 650 mg Q6H PRN PO PAIN LEVEL 1-3 OR FEVER; Start at 05:30 Acetaminophen/ Hydrocodone Bitart ([place] (5/325)) 1 tab Q6H PRN PO PAIN LEVEL 4 -6; Start 02/04/17 at 05:30 Heparin Sodium (Porcine) (Heparin (5000 Units/0.5 ml)) 5,000 unit Q12 SC Last administered on 02/05/17 08:25; Admin Dose 5,000 UNIT; Start 02/04/17 at 09:00 Multivitamins Therapeutic (Theragran) 1 tab DAILY PO Last administered on 08:24; Admin Dose 1 TAB; Start 02/04/17 at 09:00 Calcium/Vitamin D 1 tab 1 tab BID PO Last administered on 02/05/17 08:24; Admin Dose 1 TAB; Start 02/04/17 at 09:00 Piperacillin Sod/ Tazobactam Sod 100 ml @ 200 mls/hr Q8 IVPB Last administered on 02/05/17 06:03; Admin Dose 200 MLS/HR; Start 02/04/17 at 06:00 Levofloxacin/ Dextrose (Levaquin 250 Mg/ D5W 50 ml (Pmx)) 50 ml @ 50 mls/hr Q24H IVPB Last administered on 02/04/17 18:03; Admin Dose 50 MLS/HR; Start 02/04 at 14:30 Morphine Sulfate (morphine) 2 mg Q4H PRN IV PAIN LEVEL 7-10; Start 02/05/17 at 11:00 KENNY CANTOR MD Feb 05, 2017 13:28
[2017-02-05] MEDS: SOD CHLORIDE 0.9% 1,000 ML IV SCH (14:22)
[2017-02-05] MEDS: LEVOFLOXACIN 250MG/D5W (PMX) 50 ML IVPB SCH (14:22)
--- NOTE | 2017-02-05 17:21 | CONS ---
Date/Time of Note Date/Time of Note DATE: 02/05/17 TIME: 17:18 Consult Date/Type/Reason Admit Date/Time Feb 03, 2017 at 23:22 Initial Consult Date 02/04/17 Type of Consultation: Pulm Subjective No events. CTA reviewed in detail Objective Vital Signs Date Time Temp Pulse Resp B/P Pulse Ox O2 Delivery O2 Flow Rate FiO2 02/05/17 16:34 98.5 88 18 133/68 93 02/05/17 08:10 Nasal Cannula 1.0 02/03/17 20:53 21 Intake and Output 02/04/17 02/04/17 02/05/17 15:00 23:00 07:00 Intake Total 480 ml 100 ml Balance 480 ml 100 ml Exam HEENT: Neck supple; no JVD; no LAD CVS: RRR, S1 and S2 CHEST: Bibasilar rales ABD: Soft, NT, + BS EXT: No c/c/e Results/Medications Result Diagram: 02/05/17 0755 02/05/17 0755 Results 24 hrs Laboratory Tests Test 02/05/17 07:55 White Blood Count 4.5 #L Red Blood Count 3.63 #L Hemoglobin 10.1 #L Hematocrit 31.7 #L Mean Corpuscular Volume 87.3 Mean Corpuscular Hemoglobin 27.8 L Mean Corpuscular Hemoglobin Concent 31.9 L Red Cell Distribution Width 14.6 H Platelet Count 163 # Mean Platelet Volume 9.6 Neutrophils % 45.9 Lymphocytes % 42.0 Monocytes % 10.6 Eosinophils % 1.1 Basophils % 0.2 Nucleated Red Blood Cells % 0.0 Neutrophils # 2.1 Lymphocytes # 1.9 Monocytes # 0.5 Eosinophils # 0.1 Basophils # 0.0 Nucleated Red Blood Cells # 0.0 Sodium Level 143 Potassium Level 3.7 Chloride Level 97 Carbon Dioxide Level 28 Anion Gap 22 H Blood Urea Nitrogen 24 H Creatinine 1.41 H Glucose Level 93 Calcium Level 10.2 Phosphorus Level 3.9 Magnesium Level 2.2 Medications Current Medications Lorazepam (Ativan) 0.5 mg Q8H PRN PO ANXIETY; Start 02/04/17 at 05:30 Ondansetron HCl (Zofran Inj) 4 mg Q6H PRN IV NAUSEA AND/OR VOMITING; Start 02/04 at 05:30 Acetaminophen (Tylenol Tab) 650 mg Q6H PRN PO PAIN LEVEL 1-3 OR FEVER; Start at 05:30 Acetaminophen/ Hydrocodone Bitart ([place] (5/325)) 1 tab Q6H PRN PO pain 4-10; Start 02/04/17 at 05:30 Heparin Sodium (Porcine) (Heparin (5000 Units/0.5 ml)) 5,000 unit Q12 SC Last administered on 02/05/17 08:25; Admin Dose 5,000 UNIT; Start 02/04/17 at 09:00 Multivitamins Therapeutic (Theragran) 1 tab DAILY PO Last administered on 08:24; Admin Dose 1 TAB; Start 02/04/17 at 09:00 Calcium/Vitamin D 1 tab 1 tab BID PO Last administered on 02/05/17 08:24; Admin Dose 1 TAB; Start 02/04/17 at 09:00 Piperacillin Sod/ Tazobactam Sod 100 ml @ 200 mls/hr Q8 IVPB Last administered on 02/05/17 13:38; Admin Dose 200 MLS/HR; Start 02/04/17 at 06:00 Levofloxacin/ Dextrose 50 ml @ 50 mls/hr Q24H IVPB Last administered on 14:22; Admin Dose 50 MLS/HR; Start 02/04/17 at 14:30 Sodium Chloride (NS) 1,000 ml @ 80 mls/hr [id number] IV Last administered on 14:22; Admin Dose 80 MLS/HR; Start 02/05/17 at 14:30 Assessment/Plan Additional Assessment/Plan IMP: 1. Bilateral posterior ground glass opacities and reticulations--consistent with chronic aspiration due to massive hiatal hernia. Cannot exclude underlying ILD such as [place] Lung RECS: 1. De-escalate abx 2. Strict aspiration precautions 3. Daily PPI ELEANOR BAIRD MD Feb 05, 2017 17:21
[2017-02-05] MEDS: ALBUTEROL/IPRATROPIUM (NEB) 3 ML AMP HHN SCH (20:13)
--- NOTE | 2017-02-05 21:55 | CONS ---
Date/Time of Note Date/Time of Note DATE: 02/05/17 TIME: 21:54 Assessment/Plan Assessment/Plan Chief Complaint/Hosp Course Assessment: Pneumonia - on antibiotics Chronic diastolic heart failure - status post diuretics, appears clinically euvolemic to dry Hypertension Acute kidney injury on chronic kidney disease Recommendations: -echocardiogram showed LVEF 65-70%, mild LVH, grade 1 diastolic dysfunction -hold off on additional diuresis -monitor blood pressure, resume anti-hypertensive medications as needed Problems: Consultation Date/Type/Reason Admit Date/Time Feb 03, 2017 at 23:22 Initial Consult Date 02/04/17 Type of Consultation: Cardiology 24 HR Interval Summary Free Text/Dictation No acute events. Denies shortness of breath. Detailed Summary Additional Comments 14 point review of systems without changes. Exam/Review of Systems Vital Signs Vitals Vital Signs Date Time Temp Pulse Resp B/P Pulse Ox O2 Delivery O2 Flow Rate FiO2 02/05/17 20:28 86 02/05/17 20:16 94 Nasal Cannula 2.0 02/05/17 19:51 97.8 19 123/60 02/03/17 20:53 21 Intake and Output 02/04/17 02/04/17 02/05/17 15:00 23:00 07:00 Intake Total 480 ml 100 ml Balance 480 ml 100 ml Exam Constitutional: alert, well developed Psych: nl mood/affect, no complaints Head: atraumatic, normocephalic Eyes: nl conjunctiva, nl lids ENMT: nl external ears & nose, nl nasal mucosa & septum Neck: non-tender, supple, No jvd Respiratory: diminished breath sounds, No wheezing Cardiovascular: regular rate and rhythm, No murmurs/extra sounds Gastrointestinal: non-tender, soft Musculoskeletal: nl extremities to inspection Extremities: No clubbing, No cyanosis, No edema Neurological: nl mental status, nl speech Skin: nl turgor Results Result Diagram: 02/05/17 0755 02/05/17 0755 Results 24 hrs Laboratory Tests Test 02/05/17 07:55 White Blood Count 4.5 #L Red Blood Count 3.63 #L Hemoglobin 10.1 #L Hematocrit 31.7 #L Mean Corpuscular Volume 87.3 Mean Corpuscular Hemoglobin 27.8 L Mean Corpuscular Hemoglobin Concent 31.9 L Red Cell Distribution Width 14.6 H Platelet Count 163 # Mean Platelet Volume 9.6 Neutrophils % 45.9 Lymphocytes % 42.0 Monocytes % 10.6 Eosinophils % 1.1 Basophils % 0.2 Nucleated Red Blood Cells % 0.0 Neutrophils # 2.1 Lymphocytes # 1.9 Monocytes # 0.5 Eosinophils # 0.1 Basophils # 0.0 Nucleated Red Blood Cells # 0.0 Sodium Level 143 Potassium Level 3.7 Chloride Level 97 Carbon Dioxide Level 28 Anion Gap 22 H Blood Urea Nitrogen 24 H Creatinine 1.41 H Glucose Level 93 Calcium Level 10.2 Phosphorus Level 3.9 Magnesium Level 2.2 Medications Medications Current Medications Lorazepam (Ativan) 0.5 mg Q8H PRN PO ANXIETY; Start 02/04/17 at 05:30 Ondansetron HCl (Zofran Inj) 4 mg Q6H PRN IV NAUSEA AND/OR VOMITING; Start 02/04 at 05:30 Acetaminophen (Tylenol Tab) 650 mg Q6H PRN PO PAIN LEVEL 1-3 OR FEVER; Start at 05:30 Acetaminophen/ Hydrocodone Bitart ([place] (5/325)) 1 tab Q6H PRN PO pain 4-10; Start 02/04/17 at 05:30 Heparin Sodium (Porcine) (Heparin (5000 Units/0.5 ml)) 5,000 unit Q12 SC Last administered on 02/05/17 21:50; Admin Dose 5,000 UNIT; Start 02/04/17 at 09:00 Multivitamins Therapeutic (Theragran) 1 tab DAILY PO Last administered on 08:24; Admin Dose 1 TAB; Start 02/04/17 at 09:00 Calcium/Vitamin D 1 tab 1 tab BID PO Last administered on 02/05/17 21:29; Admin Dose 1 TAB; Start 02/04/17 at 09:00 Piperacillin Sod/ Tazobactam Sod 100 ml @ 200 mls/hr Q8 IVPB Last administered on 02/05/17 21:29; Admin Dose 200 MLS/HR; Start 02/04/17 at 06:00 Levofloxacin/ Dextrose 50 ml @ 50 mls/hr Q24H IVPB Last administered on 14:22; Admin Dose 50 MLS/HR; Start 02/04/17 at 14:30 Sodium Chloride (NS) 1,000 ml @ 80 mls/hr [id number] IV Last administered on t 14:22; Admin Dose 80 MLS/HR; Start 02/05/17 at 14:30 MELISSA VELEZ MD Feb 05, 2017 21:55
[2017-02-06] VITALS (12 sets, daily range): BP systolic 97–134; BP diastolic 55–71; PULSE 74–103; RESP 16–19
[2017-02-06] MEDS: SOD CHLORIDE 0.9% 1,000 ML IV SCH (03:00)
[2017-02-06] MEDS: PIPER-TAZO 3.375 GM IV (PMX) 100 ML IVPB SCH (06:07)
[2017-02-06 08:07] LABS: BASOPHILS % 0.8 % (0.0-2.0); EOSINOPHILS # 0.1 10^3/ul (0.0-0.5); EOSINOPHILS % 1.5 % (0.0-7.0); HEMATOCRIT 34.5 % (37.0-47.0); LYMPHOCYTES # 2.6 10^3/ul (0.8-2.9); LYMPHOCYTES % 49.7 % (15.0-51.0); MEAN CORPUSCULAR HEMOGLOBIN 28.1 pg (29.0-33.0); MEAN CORPUSCULAR HGB CONC 31.9 g/dl (32.0-37.0); MEAN CORPUSCULAR VOLUME 88.2 fl (82.0-101.0); MEAN PLATELET VOLUME 9.7 fl (7.4-10.4); MONOCYTES % 13.4 % (0.0-11.0); NEUTROPHILS % 34.4 % (39.0-77.0); PLATELET COUNT 175 10^3/UL (140-415); RED BLOOD COUNT 3.91 10^6/ul (4.20-5.40); RED CELL DISTRIBUTION WIDTH 14.8 % (11.5-14.5); WHITE BLOOD COUNT 5.3 10^3/ul (4.8-10.8)
[2017-02-06 08:11] LABS: POSITIVE DIFF @See below
[2017-02-06] MEDS: CALCIUM/VITAMIN D (500/200) TAB PO SCH ×2 (08:11→21:36)
[2017-02-06] MEDS: MULTIVITAMINS THERAPEUTIC TAB PO SCH (08:11)
[2017-02-06] MEDS: HEPARIN 5,000 UNIT/0.5 ML VIAL SC SCH ×2 (08:12→21:43)
[2017-02-06] MEDS: ALBUTEROL/IPRATROPIUM (NEB) 3 ML AMP HHN SCH ×3 (08:28→19:55)
[2017-02-06 08:39] LABS: CALCIUM 9.7 mg/dl (8.4-10.2); CREATININE 1.34 mg/dl (0.44-1.00); PHOSPHORUS 3.8 mg/dl (2.5-4.9); POTASSIUM 3.6 mmol/L (3.5-5.1)
[2017-02-06 10:52] LABS: BASOPHIL # 0.1 10^3/ul (0.0-0.1); MONOCYTE # 0.6 10^3/ul (0.3-0.9); MONOCYTES % (M) 11 % (0-11); NEUTROPHIL # 1.7 10^3/ul (1.6-7.5); REACTIVE LYMPHOCYTES% (M) 3 % (0-0)
[2017-02-06] MEDS: PANTOPRAZOLE (EC) 40 MG TAB PO SCH (12:12)
[2017-02-06] MEDS: METOPROLOL (XL) 25 MG TAB PO SCH (12:12)
[2017-02-06] MEDS: LEVOFLOXACIN 250 MG TAB PO SCH (12:12)
--- NOTE | 2017-02-06 13:04 | PN ---
Date/Time of Note Date/Time of Note DATE: 02/06/17 TIME: 13:03 Assessment/Plan VTE Prophylaxis VTE Prophylaxis Intervention: SCD's Lines/Catheters IV Catheter Type (from Nrs): Peripheral IV Urinary Cath still in place: No Assessment/Plan Chief Complaint/Hosp Course Patient is 86-year-old female who presents with a past medical history of hypertension, CHF who presents to [facility] complaining of cough and subjective fever with chills found to have multifocal pneumonia. Specimen and problem list Multifocal pneumonia Diastolic dysfunction Hypertension Renal insufficiency Hypernatremia, mild Leukopenia, transient Anemia Plan -De-escalate antibiotics, now on p.o. Levaquin -Patient became tachycardic to the 150s with movement shortness of breath, patient not on home metoprolol, restarting home metoprolol monitor closely -Start Protonix for hiatal hernia -Continue other home meds -As needed medication for pain -Breathing treatments Problems: Subjective 24 Hr Interval Summary Free Text/Dictation no acute complaints Exam/Review of Systems Vital Signs Vitals Vital Signs Date Time Temp Pulse Resp B/P Pulse Ox O2 Delivery O2 Flow Rate FiO2 02/06/17 12:10 98.1 104 18 97/55 98 02/06/17 08:29 2.0 02/06/17 08:29 Nasal Cannula 02/03/17 20:53 21 Intake and Output 02/05/17 02/05/17 02/06/17 15:00 23:00 07:00 Intake Total 300 ml 750 ml 1220 ml Balance 300 ml 750 ml 1220 ml Exam Physical exam General: Patient is laying in bed and answers questions appropriately Mentation: Patient is alert and oriented 4, Head: Normocephalic atraumatic Eyes: EOMI, pupils reactive to light Neck: Supple, nontender, midline Respiratory: coarse to auscultation in the RLL Cardiovascular: regular rate, no obvious murmurs Gastrointestinal: non-tender to palpation, bowel sounds heard. Neurological: Moves all extremities spontaneously Skin: No new skin lesions Results Result Diagram: 02/06/17 0655 02/06/17 0655 Results 24 hrs Laboratory Tests Test 02/06/17 06:55 White Blood Count 5.3 Red Blood Count 3.91 L Hemoglobin 11.0 L Hematocrit 34.5 L Mean Corpuscular Volume 88.2 Mean Corpuscular Hemoglobin 28.1 L Mean Corpuscular Hemoglobin Concent 31.9 L Red Cell Distribution Width 14.8 H Platelet Count 175 Mean Platelet Volume 9.7 Neutrophils % 34.4 L Segmented Neutrophils % (Manual) 33 L Band Neutrophils % (Manual) 2 Lymphocytes % 49.7 Lymphocytes % (Manual) 49 Reactive Lymphocytes % (Manual) 3 H Monocytes % 13.4 H Monocytes % (Manual) 11 Eosinophils % 1.5 Eosinophils % (Manual) 1.0 Basophils % 0.8 Nucleated Red Blood Cells % 0.0 Neutrophils # 1.7 Neutrophils # (Manual) 1.8 Band Neutrophils # 0.1 Absolute Lymphocytes (Manual) 2.5 Lymphocytes # 2.6 Reactive Lymphocytes # 0.1 H Monocytes # 0.6 Absolute Monocytes (Manual) 0.5 Eosinophils # 0.1 Basophils # 0.1 Nucleated Red Blood Cells # 0.0 Sodium Level 145 H Potassium Level 3.6 Chloride Level 103 Carbon Dioxide Level 26 Anion Gap 20 H Blood Urea Nitrogen 19 Creatinine 1.34 H Glucose Level 90 Calcium Level 9.7 Phosphorus Level 3.8 Magnesium Level 2.0 Medications Medications Current Medications Lorazepam (Ativan) 0.5 mg Q8H PRN PO ANXIETY; Start 02/04/17 at 05:30 Ondansetron HCl (Zofran Inj) 4 mg Q6H PRN IV NAUSEA AND/OR VOMITING; Start 02/04 at 05:30 Acetaminophen (Tylenol Tab) 650 mg Q6H PRN PO PAIN LEVEL 1-3 OR FEVER; Start at 05:30 Acetaminophen/ Hydrocodone Bitart ([place] (5/325)) 1 tab Q6H PRN PO pain 4-10; Start 02/04/17 at 05:30 Heparin Sodium (Porcine) (Heparin (5000 Units/0.5 ml)) 5,000 unit Q12 SC Last administered on 02/06/17 08:12; Admin Dose 5,000 UNIT; Start 02/04/17 at 09:00 Multivitamins Therapeutic (Theragran) 1 tab DAILY PO Last administered on 08:11; Admin Dose 1 TAB; Start 02/04/17 at 09:00 Calcium/Vitamin D ([place]/ Vit-D (500/200)) 1 tab BID PO Last administered on 02/06/17 08:11; Admin Dose 1 TAB; Start 02/04/17 at 09:00 Levofloxacin (Levaquin) 250 mg DAILY@06 PO Last administered on 02/06/17 12:12 ; Admin Dose 250 MG; Start 02/06/17 at 12:00 Metoprolol Succinate (Toprol Xl) 25 mg DAILY PO Last administered on 02/06/17 12:12; Admin Dose 25 MG; Start 02/06/17 at 11:30 Pantoprazole (Protonix Tab) 40 mg DAILY@06 PO Last administered on 02/06/17 12: 12; Admin Dose 40 MG; Start 02/06/17 at 11:30 DESTIN HYATT Feb 06, 2017 13:04
--- NOTE | 2017-02-06 13:06 | CONS ---
Date/Time of Note Date/Time of Note DATE: 02/06/17 TIME: 13:05 Assessment/Plan Assessment/Plan Chief Complaint/Hosp Course 1. Nonoliguric acute kidney injury on top of chronic kidney disease with unknown baseline creatinine. Etiology of current CHUYITA may be multifactorial secondary to hemodynamics, questionable contrast- associated nephropathy. The patient did receive CT angio and diuretic therapy. Plan at this point is to do a full evaluation. Will check UA with microanalysis. Will check urine electrolytes. Will check renal ultrasound. Would recommend to hold diuretic therapy. Will give the patient gentle IV hydration with albumin. Otherwise continue supportive care. Renally dose medications. Avoid nephrotoxin. 2. Sepsis secondary to multifocal pneumonia. Continue current antibiotic regimen. Follow up cultures. 3. History of congestive heart failure. The patient's CT angio shows no evidence of overt heart failure. At this point, I would recommend to hold diuretic therapy. Will continue gentle IV fluids. Follow up 2D echo. Monitor closely. 4. History of hypertension. Continue current blood pressure regimen. Problems: Consultation Date/Type/Reason Admit Date/Time Feb 03, 2017 at 23:22 Initial Consult Date 02/04/17 Type of Consultation: nephrology 24 HR Interval Summary Free Text/Dictation pt. seen and examined good uop renal fxn stable Exam Constitutional: alert, well developed Psych: nl mood/affect, no complaints Head: atraumatic, normocephalic Eyes: nl conjunctiva, nl lids ENMT: nl external ears & nose, nl nasal mucosa & septum Neck: non-tender, supple, No jvd Respiratory: diminished breath sounds, No wheezing Cardiovascular: regular rate and rhythm, No murmurs/extra sounds Gastrointestinal: non-tender, soft Musculoskeletal: nl extremities to inspection Extremities: No clubbing, No cyanosis, No edema Neurological: nl mental status, nl speech Skin: nl turgor Exam/Review of Systems Vital Signs Vitals Vital Signs Date Time Temp Pulse Resp B/P Pulse Ox O2 Delivery O2 Flow Rate FiO2 02/06/17 12:10 98.1 104 18 97/55 98 02/06/17 08:29 2.0 02/06/17 08:29 Nasal Cannula 02/03/17 20:53 21 Intake and Output 02/05/17 02/05/17 02/06/17 15:00 23:00 07:00 Intake Total 300 ml 750 ml 1220 ml Balance 300 ml 750 ml 1220 ml Results Result Diagram: 02/06/17 0655 02/06/17 0655 Results 24 hrs Laboratory Tests Test 02/06/17 06:55 White Blood Count 5.3 Red Blood Count 3.91 L Hemoglobin 11.0 L Hematocrit 34.5 L Mean Corpuscular Volume 88.2 Mean Corpuscular Hemoglobin 28.1 L Mean Corpuscular Hemoglobin Concent 31.9 L Red Cell Distribution Width 14.8 H Platelet Count 175 Mean Platelet Volume 9.7 Neutrophils % 34.4 L Segmented Neutrophils % (Manual) 33 L Band Neutrophils % (Manual) 2 Lymphocytes % 49.7 Lymphocytes % (Manual) 49 Reactive Lymphocytes % (Manual) 3 H Monocytes % 13.4 H Monocytes % (Manual) 11 Eosinophils % 1.5 Eosinophils % (Manual) 1.0 Basophils % 0.8 Nucleated Red Blood Cells % 0.0 Neutrophils # 1.7 Neutrophils # (Manual) 1.8 Band Neutrophils # 0.1 Absolute Lymphocytes (Manual) 2.5 Lymphocytes # 2.6 Reactive Lymphocytes # 0.1 H Monocytes # 0.6 Absolute Monocytes (Manual) 0.5 Eosinophils # 0.1 Basophils # 0.1 Nucleated Red Blood Cells # 0.0 Sodium Level 145 H Potassium Level 3.6 Chloride Level 103 Carbon Dioxide Level 26 Anion Gap 20 H Blood Urea Nitrogen 19 Creatinine 1.34 H Glucose Level 90 Calcium Level 9.7 Phosphorus Level 3.8 Magnesium Level 2.0 Medications Medications Current Medications Lorazepam (Ativan) 0.5 mg Q8H PRN PO ANXIETY; Start 02/04/17 at 05:30 Ondansetron HCl (Zofran Inj) 4 mg Q6H PRN IV NAUSEA AND/OR VOMITING; Start 02/04 at 05:30 Acetaminophen (Tylenol Tab) 650 mg Q6H PRN PO PAIN LEVEL 1-3 OR FEVER; Start at 05:30 Acetaminophen/ Hydrocodone Bitart ([place] (5/325)) 1 tab Q6H PRN PO pain 4-10; Start 02/04/17 at 05:30 Heparin Sodium (Porcine) (Heparin (5000 Units/0.5 ml)) 5,000 unit Q12 SC Last administered on 02/06/17t 08:12; Admin Dose 5,000 UNIT; Start 02/04/17 at 09:00 Multivitamins Therapeutic (Theragran) 1 tab DAILY PO Last administered on 08:11; Admin Dose 1 TAB; Start 02/04/17 at 09:00 Calcium/Vitamin D (Oyster Shell/ Vit-D (500/200)) 1 tab BID PO Last administered on 02/06/17 08:11; Admin Dose 1 TAB; Start 02/04/17 at 09:00 Levofloxacin (Levaquin) 250 mg DAILY@06 PO Last administered on 02/06/17 12:12 ; Admin Dose 250 MG; Start 02/06/17 at 12:00 Metoprolol Succinate (Toprol Xl) 25 mg DAILY PO Last administered on 02/06/17 12:12; Admin Dose 25 MG; Start 02/06/17 at 11:30 Pantoprazole (Protonix Tab) 40 mg DAILY@06 PO Last administered on 02/06/17 12: 12; Admin Dose 40 MG; Start 02/06/17 at 11:30 KENNY CANTOR MD Feb 06, 2017 13:05
--- NOTE | 2017-02-06 13:07 | PN ---
Date/Time of Note Date/Time of Note DATE: 02/05/17 TIME: 13:04 Assessment/Plan VTE Prophylaxis VTE Prophylaxis Intervention: ambulation, SCD's Lines/Catheters IV Catheter Type (from Nrs): Peripheral IV Urinary Cath still in place: No Assessment/Plan Chief Complaint/Hosp Course *This note is the progress note for 02/05/17.* Patient is 86-year-old female who presents with a past medical history of hypertension, CHF who presents to [facility] complaining of cough and subjective fever with chills found to have multifocal pneumonia. Specimen and problem list Multifocal pneumonia Diastolic dysfunction Hypertension Renal insufficiency Hypernatremia, mild Leukopenia, transient Anemia Plan -IV abx -Continue other home meds -As needed medication for pain -Breathing treatments *This note is the progress note for 02/05/17.* Problems: Subjective 24 Hr Interval Summary Free Text/Dictation no acute complaints, breathing better Exam/Review of Systems Vital Signs Vitals Vital Signs Date Time Temp Pulse Resp B/P Pulse Ox O2 Delivery O2 Flow Rate FiO2 02/06/17 12:10 98.1 104 18 97/55 98 02/06/17 08:29 2.0 02/06/17 08:29 Nasal Cannula 02/03/17 20:53 21 Intake and Output 02/05/17 02/05/17 02/06/17 15:00 23:00 07:00 Intake Total 300 ml 750 ml 1220 ml Balance 300 ml 750 ml 1220 ml Exam Physical exam General: Patient is laying in bed and answers questions appropriately Mentation: Patient is alert and oriented 4, Head: Normocephalic atraumatic Eyes: EOMI, pupils reactive to light Neck: Supple, nontender, midline Respiratory: coarse to auscultation bilaterally Cardiovascular: regular rate, no obvious murmurs Gastrointestinal: non-tender to palpation, bowel sounds heard. Neurological: Moves all extremities spontaneously Skin: No new skin lesions Results Result Diagram: 02/06/17 0655 02/06/17 0655 Results 24 hrs Laboratory Tests Test 02/06/17 06:55 White Blood Count 5.3 Red Blood Count 3.91 L Hemoglobin 11.0 L Hematocrit 34.5 L Mean Corpuscular Volume 88.2 Mean Corpuscular Hemoglobin 28.1 L Mean Corpuscular Hemoglobin Concent 31.9 L Red Cell Distribution Width 14.8 H Platelet Count 175 Mean Platelet Volume 9.7 Neutrophils % 34.4 L Segmented Neutrophils % (Manual) 33 L Band Neutrophils % (Manual) 2 Lymphocytes % 49.7 Lymphocytes % (Manual) 49 Reactive Lymphocytes % (Manual) 3 H Monocytes % 13.4 H Monocytes % (Manual) 11 Eosinophils % 1.5 Eosinophils % (Manual) 1.0 Basophils % 0.8 Nucleated Red Blood Cells % 0.0 Neutrophils # 1.7 Neutrophils # (Manual) 1.8 Band Neutrophils # 0.1 Absolute Lymphocytes (Manual) 2.5 Lymphocytes # 2.6 Reactive Lymphocytes # 0.1 H Monocytes # 0.6 Absolute Monocytes (Manual) 0.5 Eosinophils # 0.1 Basophils # 0.1 Nucleated Red Blood Cells # 0.0 Sodium Level 145 H Potassium Level 3.6 Chloride Level 103 Carbon Dioxide Level 26 Anion Gap 20 H Blood Urea Nitrogen 19 Creatinine 1.34 H Glucose Level 90 Calcium Level 9.7 Phosphorus Level 3.8 Magnesium Level 2.0 Medications Medications Current Medications Lorazepam (Ativan) 0.5 mg Q8H PRN PO ANXIETY; Start 02/04/17 at 05:30 Ondansetron HCl (Zofran Inj) 4 mg Q6H PRN IV NAUSEA AND/OR VOMITING; Start 02/04 at 05:30 Acetaminophen (Tylenol Tab) 650 mg Q6H PRN PO PAIN LEVEL 1-3 OR FEVER; Start at 05:30 Acetaminophen/ Hydrocodone Bitart ([place] (5/325)) 1 tab Q6H PRN PO pain 4-10; Start 02/04/17 at 05:30 Heparin Sodium (Porcine) (Heparin (5000 Units/0.5 ml)) 5,000 unit Q12 SC Last administered on 02/06/17 08:12; Admin Dose 5,000 UNIT; Start 02/04/17 at 09:00 Multivitamins Therapeutic (Theragran) 1 tab DAILY PO Last administered on 08:11; Admin Dose 1 TAB; Start 02/04/17 at 09:00 Calcium/Vitamin D (Oyster Shell/ Vit-D (500/200)) 1 tab BID PO Last administered on 02/06/17 08:11; Admin Dose 1 TAB; Start 02/04/17 at 09:00 Levofloxacin (Levaquin) 250 mg DAILY@06 PO Last administered on 02/06/17 12:12 ; Admin Dose 250 MG; Start 02/06/17 at 12:00 Metoprolol Succinate (Toprol Xl) 25 mg DAILY PO Last administered on 02/06/17 12:12; Admin Dose 25 MG; Start 02/06/17 at 11:30 Pantoprazole (Protonix Tab) 40 mg DAILY@06 PO Last administered on 02/06/17 12: 12; Admin Dose 40 MG; Start 02/06/17 at 11:30 DESTIN HYATT Feb 06, 2017 13:07
--- NOTE | 2017-02-06 13:47 | RADRPT ---
PROCEDURE: XR Chest. CLINICAL INDICATION: Difficulty breathing, cough TECHNIQUE: Single frontal view of the chest was obtained COMPARISON: 02/03/2017 FINDINGS: Atherosclerotic changes are seen in the aortic arch. The cardiac silhouette is unremarkable. There has been improvement to pulmonary vascular congestion. There is also been some improvement to the previously noted diffuse bilateral interstitial infiltrat es. Bilateral pleural effusions are also improving are now small. The bones and soft tissue show no acute change. IMPRESSION: 1. There has been some improvement to pulmonary vascular congestion. 2. There is also been some improvement in the previously noted diffuse bilateral interstitial infil trates and small bilateral pleural effusions. RPTAT:AAJJ Physician Lissette Date Time Electronically viewed and signed by Akin Davison Physician on 02/06/2017 13:47 /
--- NOTE | 2017-02-06 15:51 | CONS ---
Date/Time of Note Date/Time of Note DATE: 02/06/17 TIME: 15:50 Consult Date/Type/Reason Admit Date/Time Feb 03, 2017 at 23:22 Initial Consult Date 02/04/17 Type of Consultation: Pulm Subjective No events. Objective Vital Signs Date Time Temp Pulse Resp B/P Pulse Ox O2 Delivery O2 Flow Rate FiO2 02/06/17 13:57 96 Nasal Cannula 2.0 02/06/17 12:10 98.1 104 18 97/55 02/03/17 20:53 21 Intake and Output 02/05/17 02/05/17 02/06/17 15:00 23:00 07:00 Intake Total 300 ml 750 ml 1220 ml Balance 300 ml 750 ml 1220 ml Exam HEENT: Neck supple; no JVD; no LAD CVS: RRR, S1 and S2 CHEST: Bibasilar rales ABD: Soft, NT, + BS EXT: No c/c/e Results/Medications Result Diagram: 02/06/17 0655 02/06/17 0655 Results 24 hrs Laboratory Tests Test 02/06/17 06:55 White Blood Count 5.3 Red Blood Count 3.91 L Hemoglobin 11.0 L Hematocrit 34.5 L Mean Corpuscular Volume 88.2 Mean Corpuscular Hemoglobin 28.1 L Mean Corpuscular Hemoglobin Concent 31.9 L Red Cell Distribution Width 14.8 H Platelet Count 175 Mean Platelet Volume 9.7 Neutrophils % 34.4 L Segmented Neutrophils % (Manual) 33 L Band Neutrophils % (Manual) 2 Lymphocytes % 49.7 Lymphocytes % (Manual) 49 Reactive Lymphocytes % (Manual) 3 H Monocytes % 13.4 H Monocytes % (Manual) 11 Eosinophils % 1.5 Eosinophils % (Manual) 1.0 Basophils % 0.8 Nucleated Red Blood Cells % 0.0 Neutrophils # 1.7 Neutrophils # (Manual) 1.8 Band Neutrophils # 0.1 Absolute Lymphocytes (Manual) 2.5 Lymphocytes # 2.6 Reactive Lymphocytes # 0.1 H Monocytes # 0.6 Absolute Monocytes (Manual) 0.5 Eosinophils # 0.1 Basophils # 0.1 Nucleated Red Blood Cells # 0.0 Sodium Level 145 H Potassium Level 3.6 Chloride Level 103 Carbon Dioxide Level 26 Anion Gap 20 H Blood Urea Nitrogen 19 Creatinine 1.34 H Glucose Level 90 Calcium Level 9.7 Phosphorus Level 3.8 Magnesium Level 2.0 Medications Current Medications Lorazepam (Ativan) 0.5 mg Q8H PRN PO ANXIETY; Start 02/04/17 at 05:30 Ondansetron HCl (Zofran Inj) 4 mg Q6H PRN IV NAUSEA AND/OR VOMITING; Start 02/04 at 05:30 Acetaminophen (Tylenol Tab) 650 mg Q6H PRN PO PAIN LEVEL 1-3 OR FEVER; Start at 05:30 Acetaminophen/ Hydrocodone Bitart ([place] (5/325)) 1 tab Q6H PRN PO pain 4-10; Start 02/04/17 at 05:30 Heparin Sodium (Porcine) (Heparin (5000 Units/0.5 ml)) 5,000 unit Q12 SC Last administered on 02/06/17 08:12; Admin Dose 5,000 UNIT; Start 02/04/17 at 09:00 Multivitamins Therapeutic (Theragran) 1 tab DAILY PO Last administered on 08:11; Admin Dose 1 TAB; Start 02/04/17 at 09:00 Calcium/Vitamin D (Oyster Shell/ Vit-D (500/200)) 1 tab BID PO Last administered on 02/06/17 08:11; Admin Dose 1 TAB; Start 02/04/17 at 09:00 Levofloxacin (Levaquin) 250 mg DAILY@06 PO Last administered on 02/06/17 12:12 ; Admin Dose 250 MG; Start 02/06/17 at 12:00 Metoprolol Succinate (Toprol Xl) 25 mg DAILY PO Last administered on 02/06/17 12:12; Admin Dose 25 MG; Start 02/06/17 at 11:30 Pantoprazole (Protonix Tab) 40 mg DAILY@06 PO Last administered on 02/06/17 12: 12; Admin Dose 40 MG; Start 02/06/17 at 11:30 Assessment/Plan Additional Assessment/Plan IMP: 1. Bilateral posterior ground glass opacities and reticulations--consistent with chronic aspiration due to massive hiatal hernia. Cannot exclude underlying ILD such as [place] Lung RECS: 1. De-escalate abx 2. Strict aspiration precautions 3. Daily PPI 4. Titrate FiO2 ELEANOR BAIRD MD Feb 06, 2017 15:51
[2017-02-07] VITALS (10 sets, daily range): BP systolic 112–163; BP diastolic 57–69; PULSE 80–92; RESP 16–20
[2017-02-07] MEDS: PANTOPRAZOLE (EC) 40 MG TAB PO SCH (05:26)
[2017-02-07] MEDS: LEVOFLOXACIN 250 MG TAB PO SCH (05:26)
[2017-02-07] MEDS ORDERED: LEVOFLOXACIN 750 MG TABLET PO SCH (06:00)
[2017-02-07 07:20] LABS: CALCIUM 9.8 mg/dl (8.4-10.2); CREATININE 1.11 mg/dl (0.44-1.00); POTASSIUM 3.4 mmol/L (3.5-5.1)
[2017-02-07] MEDS: CALCIUM/VITAMIN D (500/200) TAB PO SCH ×2 (09:13→22:52)
[2017-02-07] MEDS: MULTIVITAMINS THERAPEUTIC TAB PO SCH (09:14)
[2017-02-07] MEDS: METOPROLOL (XL) 25 MG TAB PO SCH (09:14)
[2017-02-07] MEDS: HEPARIN 5,000 UNIT/0.5 ML VIAL SC SCH ×2 (09:15→22:52)
[2017-02-07] MEDS: ALBUTEROL/IPRATROPIUM (NEB) 3 ML AMP HHN SCH ×3 (09:25→19:52)
[2017-02-07] MEDS ORDERED: POTASSIUM CHLORIDE (SR) 20 MEQ TAB PO STA (09:46)
--- NOTE | 2017-02-07 10:07 | PN ---
DATE: 02/07/2017 SUBJECTIVE DATA: The patient is stable. No acute events overnight. No fevers, chills, nausea, vomiting. OBJECTIVE DATA: VITAL SIGNS: Blood pressure is 115/60, respirations 20, pulse 85, temperature 98.3. HEENT: Head is normocephalic. NECK: Supple. HEART: Regular rate. LUNGS: Diminished breath sounds at the base. ABDOMEN: Soft, nontender to palpation. No rebound or guarding. EXTREMITIES: Negative for clubbing, cyanosis. No edema. DERMATOLOGIC: No rashes. MUSCULOSKELETAL: No joint effusion. NEUROLOGIC: No change in exam. The patient's medications have been reviewed. LABORATORY AND DIAGNOSTIC DATA: Sodium 144, potassium 3.4. BUN 15, creatinine 1.11. White count is 5.3, hemoglobin 9.0, hematocrit 34.5; platelet count is 175. ASSESSMENT AND PLAN: 1. Nonoliguric acute kidney injury with unknown baseline creatinine. Etiology is likely multifactorial, possible contrast- associated nephropathy. The patient's renal function has improved over the last 48 hours. At this point, would continue current treatment plan, supportive care, and renally dose all medications. Will reorder a urinalysis with urine electrolytes. 2. Sepsis, secondary to multifocal pneumonia. Continue current antibiotic regimen. History of congestive heart failure. Patient appears euvolemic. Continue current medical 3. management. 4. Hypertension. Continue current blood pressure regimen. 5. History of diastolic dysfunction. Continue to monitor. Dictated By: David Greenfield DO /[email or web address]/luis /Document#: [id number]
[2017-02-07] MEDS: LEVOFLOXACIN 750 MG TABLET PO SCH (13:02)
--- NOTE | 2017-02-07 15:30 | CONS ---
Date/Time of Note Date/Time of Note DATE: 02/07/17 TIME: 15:28 Consult Date/Type/Reason Admit Date/Time Feb 03, 2017 at 23:22 Initial Consult Date 02/04/17 Type of Consultation: Pulm Subjective Patient remains stable no new events. Objective Vital Signs Date Time Temp Pulse Resp B/P Pulse Ox O2 Delivery O2 Flow Rate FiO2 02/07/17 13:44 100 18 95 Nasal Cannula 2.0 02/07/17 11:39 98.2 112/62 02/07/17 09:25 21 Intake and Output 02/06/17 02/06/17 02/07/17 15:00 23:00 07:00 Intake Total 800 ml 240 ml Balance 800 ml 240 ml Exam GENERAL: Elderly lady comfortable at rest no acute distress VITAL SIGNS: per chart NECK: Supple. No JVD or lymphadenopathy. CARDIAC EXAM: S1, S2. No added sounds or murmurs. CHEST: Diminished air entry both bases few rales ABDOMEN: Soft, nontender. No guarding or rebound. EXTREMITIES: No cyanosis, clubbing or edema. NEUROLOGIC: Generalized weakness. No focal deficits. Results/Medications Result Diagram: 02/06/17 0655 02/07/17 0555 Results 24 hrs Laboratory Tests Test 02/07/17 05:55 Sodium Level 144 Potassium Level 3.4 L Chloride Level 102 Carbon Dioxide Level 27 Anion Gap 18 H Blood Urea Nitrogen 15 Creatinine 1.11 H Glucose Level 99 Calcium Level 9.8 Phosphorus Level 3.0 Magnesium Level 2.0 Medications Current Medications Lorazepam (Ativan) 0.5 mg Q8H PRN PO ANXIETY; Start 02/04/17 at 05:30 Ondansetron HCl (Zofran Inj) 4 mg Q6H PRN IV NAUSEA AND/OR VOMITING; Start 02/04 at 05:30 Acetaminophen (Tylenol Tab) 650 mg Q6H PRN PO PAIN LEVEL 1-3 OR FEVER; Start at 05:30 Acetaminophen/ Hydrocodone Bitart ([employer] (5/325)) 1 tab Q6H PRN PO pain 4-10; Start 02/04/17 at 05:30 Heparin Sodium (Porcine) (Heparin (5000 Units/0.5 ml)) 5,000 unit Q12 SC Last administered on 02/07/17t 09:15; Admin Dose 5,000 UNIT; Start 02/04/17 at 09:00 Multivitamins Therapeutic (Theragran) 1 tab DAILY PO Last administered on 09:14; Admin Dose 1 TAB; Start 02/04/17 at 09:00 Calcium/Vitamin D (Oyster Shell/ Vit-D (500/200)) 1 tab BID PO Last administered on 02/07/17 09:13; Admin Dose 1 TAB; Start 02/04/17 at 09:00 Metoprolol Succinate (Toprol Xl) 25 mg DAILY PO Last administered on 02/07/17 09:14; Admin Dose 25 MG; Start 02/06/17 at 11:30 Pantoprazole (Protonix Tab) 40 mg DAILY@06 PO Last administered on 02/07/17 05: 26; Admin Dose 40 MG; Start 02/06/17 at 11:30 Levofloxacin (Levaquin) 750 mg Q48H PO Last administered on 02/07/17 13:02; Admin Dose 750 MG; Start 02/07/17 at 11:00 Assessment/Plan Chief Complaint/Hosp Course IMP: 1. Bilateral posterior ground glass opacities and reticulations- RECS: 1. De-escalate abx 2. Strict aspiration precautions 3. Daily PPI 4. Titrate FiO2 5. Encourage out of bed Problems: DENISE KELLEY MD, [facility] Feb 07, 2017 15:30
[2017-02-07 16:09] LABS: ADD UMIC NO; UR ASCORBIC ACID NEGATIVE (NEGATIVE); UR BILIRUBIN (Dip) NEGATIVE (NEGATIVE); UR BLOOD (Dip) NEGATIVE (NEGATIVE); UR CLARITY CLEAR (CLEAR); UR COLOR YELLOW (YELLOW); UR GLUCOSE (Dip) NEGATIVE (NEGATIVE); UR KETONES (Dip) NEGATIVE (NEGATIVE); UR LEUKOCYTE ESTERASE (Dip) NEGATIVE Leu/ul (NEGATIVE); UR NITRITE (Dip) NEGATIVE (NEGATIVE); UR SPECIFIC GRAVITY (Dip) 1.009 (1.003-1.030); UR TOTAL PROTEIN (Dip) NEGATIVE (NEGATIVE); UR UROBILINOGEN (Dip) NEGATIVE (NEGATIVE)
--- NOTE | 2017-02-07 17:40 | PN ---
Date/Time of Note Date/Time of Note DATE: 02/07/17 TIME: 17:35 Assessment/Plan VTE Prophylaxis VTE Prophylaxis Intervention: SCD's Lines/Catheters IV Catheter Type (from Nrs): [place] Urinary Cath still in place: No Assessment/Plan Assessment/Plan 86-year-old female who presents with a past medical history of hypertension, CHF admitted with CAP #CAP: cont high dose levoflox. total length of therapy: 5 days -wean O2 as tolerated #AFib: pt with episode of RVR to 150s earlier this admit, home bb being adjusted home O2 eval in AM and possible discharge Subjective 24 Hr Interval Summary Free Text/Dictation Feeling a little better not on O2 at home Exam/Review of Systems Vital Signs Vitals Vital Signs Date Time Temp Pulse Resp B/P Pulse Ox O2 Delivery O2 Flow Rate FiO2 02/07/17 13:44 100 18 95 Nasal Cannula 2.0 02/07/17 11:39 98.2 112/62 02/07/17 09:25 21 Intake and Output 02/06/17 02/06/17 02/07/17 15:00 23:00 07:00 Intake Total 800 ml 240 ml Balance 800 ml 240 ml Exam nad, sitting in bed, wearing NC no mrg decreased breath sounds bl bases abd soft no rashes Results Result Diagram: 02/06/17 0655 02/07/17 0555 Results 24 hrs Laboratory Tests Test 02/07/17 05:55 02/07/17 15:30 Sodium Level 144 Potassium Level 3.4 L Chloride Level 102 Carbon Dioxide Level 27 Anion Gap 18 H Blood Urea Nitrogen 15 Creatinine 1.11 H Glucose Level 99 Calcium Level 9.8 Phosphorus Level 3.0 Magnesium Level 2.0 Urine Color YELLOW Urine Clarity CLEAR Urine pH 7.0 Urine Specific [place] 1.009 Urine Ketones NEGATIVE Urine Nitrite NEGATIVE Urine Bilirubin NEGATIVE Urine Urobilinogen NEGATIVE Urine Leukocyte Esterase NEGATIVE Urine Hemoglobin NEGATIVE Urine Random Creatinine 37.97 Urine Random Sodium 88 Urine Glucose NEGATIVE Urine Total Protein 22.0 H Medications Medications Current Medications Lorazepam (Ativan) 0.5 mg Q8H PRN PO ANXIETY; Start 02/04/17 at 05:30 Ondansetron HCl (Zofran Inj) 4 mg Q6H PRN IV NAUSEA AND/OR VOMITING; Start 02/04 at 05:30 Acetaminophen (Tylenol Tab) 650 mg Q6H PRN PO PAIN LEVEL 1-3 OR FEVER; Start at 05:30 Acetaminophen/ Hydrocodone Bitart ([place] (5/325)) 1 tab Q6H PRN PO pain 4-10; Start 02/04/17 at 05:30 Heparin Sodium (Porcine) (Heparin (5000 Units/0.5 ml)) 5,000 unit Q12 SC Last administered on 02/07/17 09:15; Admin Dose 5,000 UNIT; Start 02/04/17 at 09:00 Multivitamins Therapeutic (Theragran) 1 tab DAILY PO Last administered on 09:14; Admin Dose 1 TAB; Start 02/04/17 at 09:00 Calcium/Vitamin D (Oyster Shell/ Vit-D (500/200)) 1 tab BID PO Last administered on 02/07/17 09:13; Admin Dose 1 TAB; Start 02/04/17 at 09:00 Metoprolol Succinate (Toprol Xl) 25 mg DAILY PO Last administered on 02/07/17 09:14; Admin Dose 25 MG; Start 02/06/17 at 11:30 Pantoprazole (Protonix Tab) 40 mg DAILY@06 PO Last administered on 02/07/17 05: 26; Admin Dose 40 MG; Start 02/06/17 at 11:30 Levofloxacin (Levaquin) 750 mg Q48H PO Last administered on 02/07/17 13:02; Admin Dose 750 MG; Start 02/07/17 at 11:00 MARY SAMANIEGO MD Feb 07, 2017 17:40
--- NOTE | 2017-02-07 18:47 | CONS ---
Date/Time of Note Date/Time of Note DATE: 02/07/17 TIME: 18:46 Assessment/Plan Assessment/Plan Chief Complaint/Hosp Course Assessment: Pneumonia - on antibiotics Chronic diastolic heart failure - status post diuretics Hypertension Acute kidney injury on chronic kidney disease Recommendations: -echocardiogram showed LVEF 65-70%, mild LVH, grade 1 diastolic dysfunction -hold off on additional diuresis -resumed on home metoprolol succinate 25mg daily Problems: Consultation Date/Type/Reason Admit Date/Time Feb 03, 2017 at 23:22 Initial Consult Date 02/04/17 Type of Consultation: Cardiology 24 HR Interval Summary Free Text/Dictation No acute events. Shortness of breath slowly improving. Detailed Summary Additional Comments 14 point review of systems without changes. Exam/Review of Systems Vital Signs Vitals Vital Signs Date Time Temp Pulse Resp B/P Pulse Ox O2 Delivery O2 Flow Rate FiO2 02/07/17 13:44 100 18 95 Nasal Cannula 2.0 02/07/17 11:39 98.2 112/62 02/07/17 09:25 21 Intake and Output 02/06/17 02/06/17 02/07/17 14:59 22:59 06:59 Intake Total 800 ml 240 ml Balance 800 ml 240 ml Exam Constitutional: alert, well developed Psych: nl mood/affect, no complaints Head: atraumatic, normocephalic Eyes: nl conjunctiva, nl lids ENMT: nl external ears & nose, nl nasal mucosa & septum Neck: non-tender, supple, No jvd Respiratory: diminished breath sounds, No wheezing Cardiovascular: regular rate and rhythm, No murmurs/extra sounds Gastrointestinal: non-tender, soft Musculoskeletal: nl extremities to inspection Extremities: No clubbing, No cyanosis, No edema Neurological: nl mental status, nl speech Skin: nl turgor Results Result Diagram: 02/06/17 0655 02/07/17 0555 Results 24 hrs Laboratory Tests Test 02/07/17 05:55 02/07/17 15:30 Sodium Level 144 Potassium Level 3.4 L Chloride Level 102 Carbon Dioxide Level 27 Anion Gap 18 H Blood Urea Nitrogen 15 Creatinine 1.11 H Glucose Level 99 Calcium Level 9.8 Phosphorus Level 3.0 Magnesium Level 2.0 Urine Color YELLOW Urine Clarity CLEAR Urine pH 7.0 Urine Specific [place] 1.009 Urine Ketones NEGATIVE Urine Nitrite NEGATIVE Urine Bilirubin NEGATIVE Urine Urobilinogen NEGATIVE Urine Leukocyte Esterase NEGATIVE Urine Hemoglobin NEGATIVE Urine Random Creatinine 37.97 Urine Random Sodium 88 Urine Glucose NEGATIVE Urine Total Protein 22.0 H Medications Medications Current Medications Lorazepam (Ativan) 0.5 mg Q8H PRN PO ANXIETY; Start 02/04/17 at 05:30 Ondansetron HCl (Zofran Inj) 4 mg Q6H PRN IV NAUSEA AND/OR VOMITING; Start 02/04 at 05:30 Acetaminophen (Tylenol Tab) 650 mg Q6H PRN PO PAIN LEVEL 1-3 OR FEVER; Start at 05:30 Acetaminophen/ Hydrocodone Bitart ([place] (5/325)) 1 tab Q6H PRN PO pain 4-10; Start 02/04/17 at 05:30 Heparin Sodium (Porcine) (Heparin (5000 Units/0.5 ml)) 5,000 unit Q12 SC Last administered on 02/07/17 09:15; Admin Dose 5,000 UNIT; Start 02/04/17 at 09:00 Multivitamins Therapeutic (Theragran) 1 tab DAILY PO Last administered on 09:14; Admin Dose 1 TAB; Start 02/04/17 at 09:00 Calcium/Vitamin D ([place]yster [place]/ Vit-D (500/200)) 1 tab BID PO Last administered on 02/07/17 09:13; Admin Dose 1 TAB; Start 02/04/17 at 09:00 Metoprolol Succinate (Toprol Xl) 25 mg DAILY PO Last administered on 02/07/17 09:14; Admin Dose 25 MG; Start 02/06/17 at 11:30 Levofloxacin (Levaquin) 750 mg Q48H PO Last administered on 02/07/17 13:02; Admin Dose 750 MG; Start 02/07/17 at 11:00 MELISSA VELEZ MD Feb 07, 2017 18:47
[2017-02-08 02:31] VITALS: BP 120/58; RESP 18
[2017-02-08 07:09] LABS: CALCIUM 10.1 mg/dl (8.4-10.2); MAGNESIUM 2.1 mg/dl (1.7-2.5); PHOSPHORUS 2.5 mg/dl (2.5-4.9); POTASSIUM 4.4 mmol/L (3.5-5.1)
[2017-02-08 07:26] LABS: CREATININE 1.21 mg/dl (0.44-1.00)
[2017-02-08 07:40] VITALS: BP 102/61; RESP 20
[2017-02-08] MEDS: METOPROLOL (XL) 25 MG TAB PO SCH (09:00)
[2017-02-08] MEDS: MULTIVITAMINS THERAPEUTIC TAB PO SCH (09:04)
[2017-02-08] MEDS: CALCIUM/VITAMIN D (500/200) TAB PO SCH ×2 (09:04→21:01)
[2017-02-08] MEDS: HEPARIN 5,000 UNIT/0.5 ML VIAL SC SCH ×2 (09:07→21:03)
--- NOTE | 2017-02-08 09:17 | PN ---
DATE: SUBJECTIVE DATA: The patient is stable. No events overnight. No fevers, chills, nausea or vomiting. OBJECTIVE DATA: VITAL SIGNS: Blood pressure is 102/61, respirations 20, pulse 86, temperature 99.3. HEENT: Head is normocephalic. NECK: Supple. HEART: Regular rate. LUNGS: Diminished breath sounds at the base. ABDOMEN: Soft, nontender to palpation. No rebound or guarding. EXTREMITIES: Negative for clubbing or cyanosis, no edema. DERMATOLOGIC: Clean. No rashes. MUSCULOSKELETAL: No joint effusion. NEUROLOGIC: No change in exam. MEDICATIONS: Reviewed. LABORATORY AND DIAGNOSTIC DATA: Sodium 143, potassium 1.4, chloride 102, BUN 13, creatinine 1.21. Urinalysis shows a protein creatinine ratio approximately 100 mg/g creatinine. ASSESSMENT AND PLAN: 1. Nonoliguric acute kidney injury on top of chronic kidney disease with unknown baseline creatinine. Etiology is likely multifactorial secondary to hemodynamics contrast associated nephropathy. The patient's renal function has been fluctuating in the last 48 hours, but overall improved. At this point, continue current treatment and supportive care. Renally dose all meds. The patient's urinalysis was reviewed and was bland. The patient has non-glomerular proteinuria. 2. Sepsis secondary to multifocal pneumonia. Continue current antibiotic regimen. 3. History of diastolic dysfunction. The patient appears euvolemic. Agree with holding diuretic therapy. Follow up with Cardiology. 4. Hypertension. Continue current blood pressure regimen. 5. Mineral bone disorder. Monitor calcium and phosphorus levels. 6. Anemia. Monitor H and H levels. Dictated By: David Greenfield DO /[email or web address] /Document#: [id number]
[2017-02-08] MEDS: ALBUTEROL/IPRATROPIUM (NEB) 3 ML AMP HHN SCH ×3 (09:19→20:52)
[2017-02-08 14:10] VITALS: BP 111/60; RESP 18
--- NOTE | 2017-02-08 15:37 | CONS ---
Date/Time of Note Date/Time of Note DATE: 02/08/17 TIME: 15:36 Consult Date/Type/Reason Admit Date/Time Feb 03, 2017 at 23:22 Initial Consult Date 02/04/17 Type of Consultation: Pulmonary Subjective Comfortable today no new events. Objective Vital Signs Date Time Temp Pulse Resp B/P Pulse Ox O2 Delivery O2 Flow Rate FiO2 02/08/17 14:10 98.2 107 18 111/60 98 02/08/17 13:08 Nasal Cannula 2.0 02/07/17 09:25 21 Intake and Output 02/07/17 02/07/17 02/08/17 14:59 22:59 06:59 Intake Total 450 ml 360 ml 360 ml Balance 450 ml 360 ml 360 ml Exam GENERAL: Elderly lady comfortable at rest no acute distress VITAL SIGNS: per chart NECK: Supple. No JVD or lymphadenopathy. CARDIAC EXAM: S1, S2. No added sounds or murmurs. CHEST: Diminished air entry both bases few rales ABDOMEN: Soft, nontender. No guarding or rebound. EXTREMITIES: No cyanosis, clubbing or edema. NEUROLOGIC: Generalized weakness. No focal deficits. Results/Medications Result Diagram: 02/06/17 0655 02/08/17 0555 Results 24 hrs Laboratory Tests Test 02/08/17 05:55 Sodium Level 142 Potassium Level 4.4 Chloride Level 102 Carbon Dioxide Level 27 Anion Gap 17 H Blood Urea Nitrogen 13 Creatinine 1.21 H Glucose Level 98 Calcium Level 10.1 Phosphorus Level 2.5 Magnesium Level 2.1 Medications Current Medications Lorazepam (Ativan) 0.5 mg Q8H PRN PO ANXIETY; Start 02/04/17 at 05:30 Ondansetron HCl (Zofran Inj) 4 mg Q6H PRN IV NAUSEA AND/OR VOMITING; Start 02/04 at 05:30 Acetaminophen (Tylenol Tab) 650 mg Q6H PRN PO PAIN LEVEL 1-3 OR FEVER; Start at 05:30 Acetaminophen/ Hydrocodone Bitart ([place] (5/325)) 1 tab Q6H PRN PO pain 4-10; Start 02/04/17 at 05:30 Heparin Sodium (Porcine) (Heparin (5000 Units/0.5 ml)) 5,000 unit Q12 SC Last administered on 02/08/17t 09:07; Admin Dose 5,000 UNIT; Start 02/04/17 at 09:00 Multivitamins Therapeutic (Theragran) 1 tab DAILY PO Last administered on 09:04; Admin Dose 1 TAB; Start 02/04/17 at 09:00 Calcium/Vitamin D (Oyster Shell/ Vit-D (500/200)) 1 tab BID PO Last administered on 02/08/17 09:04; Admin Dose 1 TAB; Start 02/04/17 at 09:00 Metoprolol Succinate (Toprol Xl) 25 mg DAILY PO Last administered on 02/07/17 09:14; Admin Dose 25 MG; Start 02/06/17 at 11:30 Levofloxacin (Levaquin) 750 mg Q48H PO Last administered on 02/07/17 13:02; Admin Dose 750 MG; Start 02/07/17 at 11:00 Assessment/Plan Chief Complaint/Hosp Course IMP: 1. CHF. 2. Community-acquired pneumonia RECS: 1. Complete 5 days of antibiotics 2. ABG on room air to establish need for home O2 3. Anticipate discharge tomorrow. 4. Follow-up with me as an outpatient Problems: DEN[facility]ELLEY [facility], [facility] Feb 08, 2017 15:37
[2017-02-08 17:25] LABS: AADO2 Arterial 50.2 mmHg (7.0-24.0); Allen Test ACCEPTAB; Arterial Base Excess 0 mmol/L (-3.0-3); Arterial COHb 0.3 % (0.0-3.0); Arterial Fraction of Oxyhgb 90.9 % (93.0-99.0); Arterial HCO3 23.3 mmol/L (22.0-26.0); Arterial MetHb 0.2 % (0.0-1.5); Arterial Total Hemglobin 13.1 g/dl (12.0-18.0); MODE ROOM AIR
--- NOTE | 2017-02-08 18:36 | PN ---
Date/Time of Note Date/Time of Note DATE: 02/08/17 TIME: 18:34 Assessment/Plan VTE Prophylaxis VTE Prophylaxis Intervention: SCD's Lines/Catheters IV Catheter Type (from Nrs): Saline Lock Urinary Cath still in place: No Assessment/Plan Assessment/Plan 86-year-old female who presents with a past medical history of hypertension, CHF admitted with CAP #CAP: cont high dose levoflox. total length of therapy: 5 days -wean O2 as tolerated #AFib: pt with episode of RVR to 150s earlier this admit, bb was adjusted will discuss prospect of ATC with cards prior to discharge likely xfer to SNF tomorrow Subjective 24 Hr Interval Summary Free Text/Dictation per CM, doesn't qualify for home O2. Pt lives alone Exam/Review of Systems Vital Signs Vitals Vital Signs Date Time Temp Pulse Resp B/P Pulse Ox O2 Delivery O2 Flow Rate FiO2 02/08/17 14:10 98.2 107 18 111/60 98 02/08/17 13:08 Nasal Cannula 2.0 02/07/17 09:25 21 Intake and Output 02/07/17 02/07/17 02/08/17 15:00 23:00 07:00 Intake Total 450 ml 360 ml 360 ml Balance 450 ml 360 ml 360 ml Exam nad, sitting at side of bed lungs clear abd soft no rashes no le edema Results Result Diagram: 02/06/17 0655 02/08/17 0555 Results 24 hrs Laboratory Tests Test 02/08/17 05:55 02/08/17 17:00 Sodium Level 142 Potassium Level 4.4 Chloride Level 102 Carbon Dioxide Level 27 Anion Gap 17 H Blood Urea Nitrogen 13 Creatinine 1.21 H Glucose Level 98 Calcium Level 10.1 Phosphorus Level 2.5 Magnesium Level 2.1 Blood Gas Specimen Source Blood arterial Arterial Blood Date Drawn 02/08/2017 5:20:29 PM Arterial Blood pH (Temp corrected) 7.454 H Arterial Blood pCO2 (Temp correct) 34.0 L Arterial Blood pO2 (Temp corrected) 58.8 L Arterial Blood HCO3 23.3 Arterial Blood Base Excess 0 Arterial Blood Oxygen Saturation 91.4 L Dani Test ACCEPTAB Arterial Blood Gas Puncture Site Right Radial Arterial Blood Carboxyhemoglobin 0.3 Arterial Blood Methemoglobin 0.2 Blood Gas A-a O2 Differential 50.2 H Oxyhemoglobin Percent 90.9 L Total Hemoglobin 13.1 Blood Gas Temperature 37.0 Blood Gas Modality ROOM AIR FiO2 21.0 Blood Gas Notified Whom RT Blood Gas Notified Time 02/08/2017 5:24:50 PM Medications Medications Current Medications Lorazepam (Ativan) 0.5 mg Q8H PRN PO ANXIETY; Start 02/04/17 at 05:30 Ondansetron HCl (Zofran Inj) 4 mg Q6H PRN IV NAUSEA AND/OR VOMITING; Start 02/04 at 05:30 Acetaminophen (Tylenol Tab) 650 mg Q6H PRN PO PAIN LEVEL 1-3 OR FEVER; Start at 05:30 Acetaminophen/ Hydrocodone Bitart ([place] (5/325)) 1 tab Q6H PRN PO pain 4-10; Start 02/04/17 at 05:30 Heparin Sodium (Porcine) (Heparin (5000 Units/0.5 ml)) 5,000 unit Q12 SC Last administered on 02/08/17 09:07; Admin Dose 5,000 UNIT; Start 02/04/17 at 09:00 Multivitamins Therapeutic (Theragran) 1 tab DAILY PO Last administered on 09:04; Admin Dose 1 TAB; Start 02/04/17 at 09:00 Calcium/Vitamin D (Oyster Shell/ Vit-D (500/200)) 1 tab BID PO Last administered on 02/08/17 09:04; Admin Dose 1 TAB; Start 02/04/17 at 09:00 Metoprolol Succinate (Toprol Xl) 25 mg DAILY PO Last administered on 02/07/17 09:14; Admin Dose 25 MG; Start 02/06/17 at 11:30 Levofloxacin (Levaquin) 750 mg Q48H PO Last administered on 02/07/17 13:02; Admin Dose 750 MG; Start 02/07/17 at 11:00 MARY SAMANIEGO MD Feb 08, 2017 18:35
--- NOTE | 2017-02-08 19:03 | CONS ---
Date/Time of Note Date/Time of Note DATE: 02/08/17 TIME: 19:02 Assessment/Plan Assessment/Plan Chief Complaint/Hosp Course Assessment: Pneumonia - on antibiotics Chronic diastolic heart failure - status post diuretics Hypertension Acute kidney injury on chronic kidney disease Recommendations: -echocardiogram showed LVEF 65-70%, mild LVH, grade 1 diastolic dysfunction -hold off on additional diuresis -continue home metoprolol succinate 25mg daily Problems: Consultation Date/Type/Reason Admit Date/Time Feb 03, 2017 at 23:22 Initial Consult Date 02/04/17 Type of Consultation: Cardiology 24 HR Interval Summary Free Text/Dictation No acute events. Shortness of breath improved. Detailed Summary Additional Comments 14 point review of systems without changes. Exam/Review of Systems Vital Signs Vitals Vital Signs Date Time Temp Pulse Resp B/P Pulse Ox O2 Delivery O2 Flow Rate FiO2 02/08/17 14:10 98.2 107 18 111/60 98 02/08/17 13:08 Nasal Cannula 2.0 02/07/17 09:25 21 Intake and Output 02/07/17 02/07/17 02/08/17 15:00 23:00 07:00 Intake Total 450 ml 360 ml 360 ml Balance 450 ml 360 ml 360 ml Exam Constitutional: alert, well developed Psych: nl mood/affect, no complaints Head: atraumatic, normocephalic Eyes: nl conjunctiva, nl lids ENMT: nl external ears & nose, nl nasal mucosa & septum Neck: non-tender, supple, No jvd Respiratory: diminished breath sounds, No wheezing Cardiovascular: regular rate and rhythm, No murmurs/extra sounds Gastrointestinal: non-tender, soft Musculoskeletal: nl extremities to inspection Extremities: No clubbing, No cyanosis, No edema Neurological: nl mental status, nl speech Skin: nl turgor Results Result Diagram: 02/06/17 0655 02/08/17 0555 Results 24 hrs Laboratory Tests Test 02/08/17 05:55 02/08/17 17:00 Sodium Level 142 Potassium Level 4.4 Chloride Level 102 Carbon Dioxide Level 27 Anion Gap 17 H Blood Urea Nitrogen 13 Creatinine 1.21 H Glucose Level 98 Calcium Level 10.1 Phosphorus Level 2.5 Magnesium Level 2.1 Blood Gas Specimen Source Blood arterial Arterial Blood Date Drawn 02/08/2017 5:20:29 PM Arterial Blood pH (Temp corrected) 7.454 H Arterial Blood pCO2 (Temp correct) 34.0 L Arterial Blood pO2 (Temp corrected) 58.8 L Arterial Blood HCO3 23.3 Arterial Blood Base Excess 0 Arterial Blood Oxygen Saturation 91.4 L Dani Test ACCEPTAB Arterial Blood Gas Puncture Site Right Radial Arterial Blood Carboxyhemoglobin 0.3 Arterial Blood Methemoglobin 0.2 Blood Gas A-a O2 Differential 50.2 H Oxyhemoglobin Percent 90.9 L Total Hemoglobin 13.1 Blood Gas Temperature 37.0 Blood Gas Modality ROOM AIR FiO2 21.0 Blood Gas Notified Whom RT Blood Gas Notified Time 02/08/2017 5:24:50 PM Medications Medications Current Medications Lorazepam (Ativan) 0.5 mg Q8H PRN PO ANXIETY; Start 02/04/17 at 05:30 Ondansetron HCl (Zofran Inj) 4 mg Q6H PRN IV NAUSEA AND/OR VOMITING; Start 02/04 at 05:30 Acetaminophen (Tylenol Tab) 650 mg Q6H PRN PO PAIN LEVEL 1-3 OR FEVER; Start at 05:30 Acetaminophen/ Hydrocodone Bitart ([place] (5/325)) 1 tab Q6H PRN PO pain 4-10; Start 02/04/17 at 05:30 Heparin Sodium (Porcine) (Heparin (5000 Units/0.5 ml)) 5,000 unit Q12 SC Last administered on 02/08/17 09:07; Admin Dose 5,000 UNIT; Start 02/04/17 at 09:00 Multivitamins Therapeutic (Theragran) 1 tab DAILY PO Last administered on 09:04; Admin Dose 1 TAB; Start 02/04/17 at 09:00 Calcium/Vitamin D (Oyster Shell/ Vit-D (500/200)) 1 tab BID PO Last administered on 02/08/17 09:04; Admin Dose 1 TAB; Start 02/04/17 at 09:00 Metoprolol Succinate (Toprol Xl) 25 mg DAILY PO Last administered on 02/07/17 09:14; Admin Dose 25 MG; Start 02/06/17 at 11:30 Levofloxacin (Levaquin) 750 mg Q48H PO Last administered on 02/07/17 13:02; Admin Dose 750 MG; Start 02/07/17 at 11:00 MELISSA VELEZ MD Feb 08, 2017 19:03
[2017-02-08 20:33] VITALS: BP 129/68; RESP 20
[2017-02-09 02:00] VITALS: BP 117/63; RESP 19
[2017-02-09 06:00] LABS: CREATININE 1.16 mg/dl (0.44-1.00); MAGNESIUM 2.1 mg/dl (1.7-2.5); PHOSPHORUS 3.2 mg/dl (2.5-4.9); POTASSIUM 4.2 mmol/L (3.5-5.1)
[2017-02-09] MEDS: ALBUTEROL/IPRATROPIUM (NEB) 3 ML AMP HHN SCH ×3 (07:28→19:37)
[2017-02-09] MEDS: CALCIUM/VITAMIN D (500/200) TAB PO SCH ×2 (08:31→20:36)
[2017-02-09] MEDS: MULTIVITAMINS THERAPEUTIC TAB PO SCH (08:31)
[2017-02-09] MEDS: METOPROLOL (XL) 25 MG TAB PO SCH (08:31)
[2017-02-09 08:32] VITALS: BP 117/63; RESP 20
[2017-02-09] MEDS: HEPARIN 5,000 UNIT/0.5 ML VIAL SC SCH ×2 (08:32→20:38)
--- NOTE | 2017-02-09 09:49 | PN ---
DATE: 02/09/2017 SUBJECTIVE DATA: The patient is stable. No acute events overnight. No fevers, chills, nausea, vomiting. OBJECTIVE DATA: VITAL SIGNS: Blood pressure is 117/63, respirations 20, pulse 93, temperature 97.7. HEENT: Head is normocephalic. NECK: Supple. HEART: Regular rate. LUNGS: Show diminished breath sounds at the base. ABDOMEN: Soft, nontender to palpation. No rebound or guarding. EXTREMITIES: Negative for clubbing, cyanosis. No edema. DERMATOLOGIC: Clean. No rashes. MUSCULOSKELETAL: No joint effusion. NEUROLOGIC: No change in exam. MEDICATIONS: Reviewed. LABORATORY AND DIAGNOSTIC DATA: Show sodium 141, potassium 4.2, BUN 14, creatinine 1.16. CBC has been reviewed. ASSESSMENT AND PLAN: 1. Nonoliguric acute kidney injury on top of chronic kidney disease with unknown baseline creatinine. Etiology secondary to hemodynamics and possible contrast-associated nephropathy. The patient's renal function has improved. At this point, continue current treatment plan, supportive care. Renally dose all meds for nephrotoxins. 2. Sepsis secondary to multifocal pneumonia. Continue current antibiotic regimen. 3. History of diastolic dysfunction. The patient appears euvolemic. Continue current medical management. Follow up with Cardiology. 4. Hypertension. Continue current blood pressure regimen. 5. Mineral bone disorder. Continue to monitor calcium and phosphorus levels. 6. Anemia. Monitor H and H levels. Dictated By: David Greenfield DO /[email or web address]/baron /Document#: [id number]
[2017-02-09] MEDS: LEVOFLOXACIN 750 MG TABLET PO SCH (11:35)
[2017-02-09 14:56] VITALS: BP 121/59; RESP 18
--- NOTE | 2017-02-09 16:23 | CONS ---
Date/Time of Note Date/Time of Note DATE: 02/09/17 TIME: 16:22 Consult Date/Type/Reason Admit Date/Time Feb 03, 2017 at 23:22 Initial Consult Date 02/04/17 Type of Consultation: Pulmonary Subjective Patient doing okay this morning. Mild exertional dyspnea. Objective Vital Signs Date Time Temp Pulse Resp B/P Pulse Ox O2 Delivery O2 Flow Rate FiO2 02/09/17 14:56 98.2 106 18 121/59 96 02/09/17 13:08 Nasal Cannula 2.0 02/07/17 09:25 21 Intake and Output 02/08/17 02/08/17 02/09/17 15:00 23:00 07:00 Intake Total 740 ml 605 ml Balance 740 ml 605 ml Exam PHYSICAL EXAMINATION GENERAL: Well-nourished well-developed lady comfortable at rest VITAL SIGNS: see below. HEENT: Pupils equal, round, and reactive to light. CARDIAC: S1, S2, no added sounds or murmurs CHEST: Diminished air entry bilaterally. ABDOMEN: Mildly distended. Bowel sounds present no guarding or rebound EXTREMITIES: No cyanosis, clubbing edema +1 NEUROLOGIC: Generalized weakness Results/Medications Result Diagram: 02/06/17 0655 02/09/17 0436 Results 24 hrs Laboratory Tests Test 02/08/17 17:00 02/09/17 04:36 Blood Gas Specimen Source Blood arterial Arterial Blood Date Drawn 02/08/2017 5:20:29 PM Arterial Blood pH (Temp corrected) 7.454 H Arterial Blood pCO2 (Temp correct) 34.0 L Arterial Blood pO2 (Temp corrected) 58.8 L Arterial Blood HCO3 23.3 Arterial Blood Base Excess 0 Arterial Blood Oxygen Saturation 91.4 L Dani Test ACCEPTAB Arterial Blood Gas Puncture Site Right Radial Arterial Blood Carboxyhemoglobin 0.3 Arterial Blood Methemoglobin 0.2 Blood Gas A-a O2 Differential 50.2 H Oxyhemoglobin Percent 90.9 L Total Hemoglobin 13.1 Blood Gas Temperature 37.0 Blood Gas Modality ROOM AIR FiO2 21.0 Blood Gas Notified Whom RT Blood Gas Notified Time 02/08/2017 5:24:50 PM Sodium Level 141 Potassium Level 4.2 Chloride Level 102 Carbon Dioxide Level 25 Anion Gap 18 H Blood Urea Nitrogen 14 Creatinine 1.16 H Glucose Level 103 Calcium Level 10.0 Phosphorus Level 3.2 Magnesium Level 2.1 Medications Current Medications Lorazepam (Ativan) 0.5 mg Q8H PRN PO ANXIETY; Start 02/04/17 at 05:30 Ondansetron HCl (Zofran Inj) 4 mg Q6H PRN IV NAUSEA AND/OR VOMITING; Start 02/04 at 05:30 Acetaminophen (Tylenol Tab) 650 mg Q6H PRN PO PAIN LEVEL 1-3 OR FEVER; Start at 05:30 Acetaminophen/ Hydrocodone Bitart ([place] (5/325)) 1 tab Q6H PRN PO pain 4-10; Start 02/04/17 at 05:30 Heparin Sodium (Porcine) (Heparin (5000 Units/0.5 ml)) 5,000 unit Q12 SC Last administered on 02/09/17 08:32; Admin Dose 5,000 UNIT; Start 02/04/17 at 09:00 Multivitamins Therapeutic (Theragran) 1 tab DAILY PO Last administered on 08:31; Admin Dose 1 TAB; Start 02/04/17 at 09:00 Calcium/Vitamin D (Oyster Shell/ Vit-D (500/200)) 1 tab BID PO Last administered on 02/09/17 08:31; Admin Dose 1 TAB; Start 02/04/17 at 09:00 Metoprolol Succinate (Toprol Xl) 25 mg DAILY PO Last administered on 02/09/17 08:31; Admin Dose 25 MG; Start 02/06/17 at 11:30 Levofloxacin (Levaquin) 750 mg Q48H PO Last administered on 02/09/17 11:35; Admin Dose 750 MG; Start 02/07/17 at 11:00 Assessment/Plan Chief Complaint/Hosp Course IMP: 1. CHF. 2. Community-acquired pneumonia RECS: 1. No further need for antibiotics 2. PaO2 is borderline. 3. Discharge today. Family declined senior care facility want to take patient home. 4. Follow-up with me as an outpatient Problems: DEN[facility]EL[facility], [facility] Feb 09, 2017 16:23
--- NOTE | 2017-02-09 16:27 | CONS ---
Date/Time of Note Date/Time of Note DATE: 02/09/17 TIME: 16:26 Assessment/Plan Assessment/Plan Chief Complaint/Hosp Course Assessment: Pneumonia - on antibiotics Chronic diastolic heart failure - status post diuretics Hypertension Acute kidney injury on chronic kidney disease Recommendations: -echocardiogram showed LVEF 65-70%, mild LVH, grade 1 diastolic dysfunction -hold off on additional diuresis -continue home metoprolol succinate 25mg daily Problems: Consultation Date/Type/Reason Admit Date/Time Feb 03, 2017 at 23:22 Initial Consult Date 02/04/17 Type of Consultation: Cardiology 24 HR Interval Summary Free Text/Dictation No acute events. Detailed Summary Additional Comments 14 point review of systems without changes. Exam/Review of Systems Vital Signs Vitals Vital Signs Date Time Temp Pulse Resp B/P Pulse Ox O2 Delivery O2 Flow Rate FiO2 02/09/17 14:56 98.2 106 18 121/59 96 02/09/17 13:08 Nasal Cannula 2.0 02/07/17 09:25 21 Intake and Output 02/08/17 02/08/17 02/09/17 15:00 23:00 07:00 Intake Total 740 ml 605 ml Balance 740 ml 605 ml Exam Constitutional: alert, well developed Psych: nl mood/affect, no complaints Head: atraumatic, normocephalic Eyes: nl conjunctiva, nl lids ENMT: nl external ears & nose, nl nasal mucosa & septum Neck: non-tender, supple, No jvd Respiratory: diminished breath sounds, No wheezing Cardiovascular: regular rate and rhythm, No murmurs/extra sounds Gastrointestinal: non-tender, soft Musculoskeletal: nl extremities to inspection Extremities: No clubbing, No cyanosis, No edema Neurological: nl mental status, nl speech Skin: nl turgor Results Result Diagram: 02/06/17 0655 02/09/17 0436 Results 24 hrs Laboratory Tests Test 02/08/17 17:00 02/09/17 04:36 Blood Gas Specimen Source Blood arterial Arterial Blood Date Drawn 02/08/2017 5:20:29 PM Arterial Blood pH (Temp corrected) 7.454 H Arterial Blood pCO2 (Temp correct) 34.0 L Arterial Blood pO2 (Temp corrected) 58.8 L Arterial Blood HCO3 23.3 Arterial Blood Base Excess 0 Arterial Blood Oxygen Saturation 91.4 L Dani Test ACCEPTAB Arterial Blood Gas Puncture Site Right Radial Arterial Blood Carboxyhemoglobin 0.3 Arterial Blood Methemoglobin 0.2 Blood Gas A-a O2 Differential 50.2 H Oxyhemoglobin Percent 90.9 L Total Hemoglobin 13.1 Blood Gas Temperature 37.0 Blood Gas Modality ROOM AIR FiO2 21.0 Blood Gas Notified Whom RT Blood Gas Notified Time 02/08/2017 5:24:50 PM Sodium Level 141 Potassium Level 4.2 Chloride Level 102 Carbon Dioxide Level 25 Anion Gap 18 H Blood Urea Nitrogen 14 Creatinine 1.16 H Glucose Level 103 Calcium Level 10.0 Phosphorus Level 3.2 Magnesium Level 2.1 Medications Medications Current Medications Lorazepam (Ativan) 0.5 mg Q8H PRN PO ANXIETY; Start 02/04/17 at 05:30 Ondansetron HCl (Zofran Inj) 4 mg Q6H PRN IV NAUSEA AND/OR VOMITING; Start 02/04 at 05:30 Acetaminophen (Tylenol Tab) 650 mg Q6H PRN PO PAIN LEVEL 1-3 OR FEVER; Start at 05:30 Acetaminophen/ Hydrocodone Bitart ([place] (5/325)) 1 tab Q6H PRN PO pain 4-10; Start 02/04/17 at 05:30 Heparin Sodium (Porcine) (Heparin (5000 Units/0.5 ml)) 5,000 unit Q12 SC Last administered on 02/09/17 08:32; Admin Dose 5,000 UNIT; Start 02/04/17 at 09:00 Multivitamins Therapeutic (Theragran) 1 tab DAILY PO Last administered on 08:31; Admin Dose 1 TAB; Start 02/04/17 at 09:00 Calcium/Vitamin D (Oyster Shell/ Vit-D (500/200)) 1 tab BID PO Last administered on 02/09/17 08:31; Admin Dose 1 TAB; Start 02/04/17 at 09:00 Metoprolol Succinate (Toprol Xl) 25 mg DAILY PO Last administered on 02/09/17 08:31; Admin Dose 25 MG; Start 02/06/17 at 11:30 Levofloxacin (Levaquin) 750 mg Q48H PO Last administered on 02/09/17 11:35; Admin Dose 750 MG; Start 02/07/17 at 11:00 MELISSA VELEZ MD Feb 09, 2017 16:27
--- NOTE | 2017-02-09 17:38 | PN ---
Date/Time of Note Date/Time of Note DATE: 02/09/17 TIME: 17:37 Assessment/Plan VTE Prophylaxis VTE Prophylaxis Intervention: SCD's Lines/Catheters IV Catheter Type (from Nrsg): Saline Lock Urinary Cath still in place: No Assessment/Plan Assessment/Plan 86-year-old female who presents with a past medical history of hypertension, CHF admitted with CAP #CAP: cont high dose levoflox. Pt received zosyn 8.4-8.6, changed to levoflox 8.7. Pt will need 7 total days of therapy. Tomorrow appears to be last day of abx. -wean O2 as tolerated cont home BP meds likely home with HH tomorrow Subjective 24 Hr Interval Summary Free Text/Dictation Daughter requesting 1 more day in the hospital for patient as pt refused SNF Exam/Review of Systems Vital Signs Vitals Vital Signs Date Time Temp Pulse Resp B/P Pulse Ox O2 Delivery O2 Flow Rate FiO2 02/09/17 14:56 98.2 106 18 121/59 96 02/09/17 13:08 Nasal Cannula 2.0 02/07/17 09:25 21 Intake and Output 02/08/17 02/08/17 02/09/17 15:00 23:00 07:00 Intake Total 740 ml 605 ml Balance 740 ml 605 ml Exam nad, sitting in chair, wearing NC no mrg mod air movement abd soft no rashes Results Result Diagram: 02/06/17 0655 02/09/17 0436 Results 24 hrs Laboratory Tests Test 02/09/17 04:36 Sodium Level 141 Potassium Level 4.2 Chloride Level 102 Carbon Dioxide Level 25 Anion Gap 18 H Blood Urea Nitrogen 14 Creatinine 1.16 H Glucose Level 103 Calcium Level 10.0 Phosphorus Level 3.2 Magnesium Level 2.1 Medications Medications Current Medications Lorazepam (Ativan) 0.5 mg Q8H PRN PO ANXIETY; Start 02/04/17 at 05:30 Ondansetron HCl (Zofran Inj) 4 mg Q6H PRN IV NAUSEA AND/OR VOMITING; Start 02/04 at 05:30 Acetaminophen (Tylenol Tab) 650 mg Q6H PRN PO PAIN LEVEL 1-3 OR FEVER; Start at 05:30 Acetaminophen/ Hydrocodone Bitart ([place] (5/325)) 1 tab Q6H PRN PO pain 4-10; Start 02/04/17 at 05:30 Heparin Sodium (Porcine) (Heparin (5000 Units/0.5 ml)) 5,000 unit Q12 SC Last administered on 02/09/17 08:32; Admin Dose 5,000 UNIT; Start 02/04/17 at 09:00 Multivitamins Therapeutic (Theragran) 1 tab DAILY PO Last administered on 08:31; Admin Dose 1 TAB; Start 02/04/17 at 09:00 Calcium/Vitamin D (Oyster Shell/ Vit-D (500/200)) 1 tab BID PO Last administered on 02/09/17 08:31; Admin Dose 1 TAB; Start 02/04/17 at 09:00 Metoprolol Succinate (Toprol Xl) 25 mg DAILY PO Last administered on 02/09/17 08:31; Admin Dose 25 MG; Start 02/06/17 at 11:30 Levofloxacin (Levaquin) 750 mg Q48H PO Last administered on 02/09/17 11:35; Admin Dose 750 MG; Start 02/07/17 at 11:00 MARY SAMANIEGO MD Feb 09, 2017 17:38
[2017-02-09 19:51] VITALS: BP 112/61; RESP 20
[2017-02-09 21:00] VITALS: BP 131/78; RESP 18
[2017-02-10 02:18] VITALS: BP 102/57; RESP 20
[2017-02-10] MEDS: ALBUTEROL/IPRATROPIUM (NEB) 3 ML AMP HHN SCH (07:48)
[2017-02-10 07:54] VITALS: BP 108/59; RESP 20
--- NOTE | 2017-02-10 09:04 | PDOCDIS ---
Discharge Instructions CONDITION Patient Condition: Stable FOLLOW UP/APPOINTMENTS Follow-up Plan Follow up with your regular doctor within 7 days Follow up with the lung doctor you saw during your stay: Dr Chen Office Address [address] [place] [id number] Office MARY SAMANIEGO MD Feb 10, 2017 09:04
--- NOTE | 2017-02-10 09:04 | DS ---
Date/Time of Note Date/Time of Note DATE: 02/10/17 TIME: 09:04 Discharge Summary Admission/Discharge Info Admit Date/Time Feb 03, 2017 at 23:22 Discharge Date/Time Discharge Diagnosis community acquired pneumonia Patient Condition: Stable Consults cardiology, pulmonology, nephrology Procedures CTA chest 8.3 IMPRESSION: 1. No pulmonary emboli through the level of the subsegmental pulmonary arteries. 2. Extensive ground-glass opacity throughout both lungs with patchy areas of consolidation involving the superior segments of both lower lobes, lingula, and minimally in the basilar lower lobes. These findings are most suggestive of multifocal pneumonia. 3. Hilar and mediastinal adenopathy, likely reactive in nature. 4. Large sliding hiatal hernia. 5. Coronary artery calcifications and atherosclerotic changes of the aorta. TTE 8.4 Conclusions 1. The left ventricle is normal in size and systolic function. 2. Estimated left ventricular ejection fraction of 65-70%. 3. Mild concentric left ventricular hypertrophy. Grade 1 diastolic dysfunction. Hx of Present Illness This is an 86-year-old female with a history of hypertension, CHF, probable renal insufficiency who presented to the emergency department complaining of cough and subjective fever/chills. Symptom began a week ago and has been progressively getting worse. Cough is at times productive with occasional streaks of blood. In the ER, CXR showed Mild to moderate failure, with small left pleural effusion. Moderate air-filled hiatal hernia. CT pulmonary angiogram shows Extensive ground-glass opacity throughout both lungs with patchy areas of consolidation involving the superior segments of both lower lobes, lingula, and minimally in the basilar lower lobes. These findings are most suggestive of multifocal pneumonia. Hilar and mediastinal adenopathy, likely reactive in nature. Large sliding hiatal hernia. Initial vitals were stable. Labs show a BUN of 26 and a creatinine of 1.23 otherwise CBC and BMP were within normal limits. WBC was 9.0. . Hospital Course 86 yo F admitted for sepsis 2/2 CAP. On admission had CHUYITA, resolved with fluids and CAP treatment (abx). Completed a week of abx. No changes made to pt's admit meds. Pt is an elderly lady who lives alone in the community with multiple medical problems. CM offered SNF but pt refused. Instead pt discharged with . Home Meds Reported Medications Metoprolol Succinate* (Toprol XL*) 25 Mg Tab.sr.24h, 25 MG PO DAILY, #30 TAB 02/03/17 Multivitamins* (Theragran*) 1 Tab Tab, 1 TAB PO DAILY, TAB 02/03/17 Calcium Carbonate-Vitamin D3 (Calcium 500 + D Tablet) 1 Each Tablet, 1 TAB PO BID, TAB 02/03/17 Alendronate Sodium* (Fosamax*) 70 Mg Tablet, 70 MG PO Q7D, #4 TAB Q SAT 02/03/17 Discontinued Reported Medications Metoprolol Tartrate* (Lopressor*) 25 Mg Tab, 1 TAB PO DAILY 06/22/12 Atorvastatin (Lipitor) 10 Mg Tablet, 1 TAB PO DAILY 06/22/12 Lisinopril* (Lisinopril*) 5 Mg Tablet, 1 TAB PO DAILY 06/22/12 Alendronate Sodium (Fosamax) 70 Mg Tablet, 1 TAB PO MONTHLY 06/22/12 Follow-up Plan PCP within 7 days, pulm within 2-4 weeks Primary Care Provider Felicia Sanders Time spent on discharge: > 30 minutes MARY SAMANIEGO MD Feb 10, 2017 09:04 Felicia Sanders Time spent on discharge: > 30 minutes MARY SAMANIEGO MD Feb 10, 2017 09:04
[2017-02-10] MEDS: HEPARIN 5,000 UNIT/0.5 ML VIAL SC SCH (10:10)
[2017-02-10] MEDS: CALCIUM/VITAMIN D (500/200) TAB PO SCH (10:11)
[2017-02-10] MEDS: MULTIVITAMINS THERAPEUTIC TAB PO SCH (10:11)
[2017-02-10] MEDS: METOPROLOL (XL) 25 MG TAB PO SCH (10:12)
--- NOTE | 2017-02-10 11:10 | PN ---
DATE: 02/10/2017 SUBJECTIVE DATA: Patient is stable. No events overnight. No fevers, chills, nausea, vomiting. OBJECTIVE DATA: VITAL SIGNS: Blood pressure 108/59, respirations 20, pulse 97, temperature 98.1. HEENT: Head is normocephalic. NECK: Supple. HEART: Regular rate. LUNGS: Diminished breath sounds at the base. ABDOMEN: Soft, nontender to palpation. No rebound or guarding. EXTREMITIES: Negative for clubbing, cyanosis. No edema. DERMATOLOGIC: Clean. No rashes. MUSCULOSKELETAL: No joint effusion. NEUROLOGIC: No change in exam. MEDICATIONS: Reviewed. LABORATORY AND DIAGNOSTIC DATA: Reviewed. ASSESSMENT AND PLAN: 1. Nonoliguric acute kidney injury on top of chronic kidney disease with unknown baseline creatinine. Etiology secondary to hemodynamics. Renal function has improved. Continue current treatment. Supportive care. Renally dose all meds. 2. Sepsis secondary to pneumonia. The patient is completing antibiotic course. 3. History of diastolic dysfunction. The patient appears euvolemic. Continue medical management. 4. Hypertension. Continue current blood pressure regimen. 5. Metabolic bone disorder. Monitor calcium and phosphorus levels. 6. Anemia. Monitor hemoglobin and hematocrit levels. Dictated By: David Greenfield DO /[email or web address] /Document#: [id number]
--- NOTE | 2017-02-10 13:21 | CONS ---
Date/Time of Note Date/Time of Note DATE: 02/10/17 TIME: 13:20 Consult Date/Type/Reason Admit Date/Time Feb 03, 2017 at 23:22 Initial Consult Date 02/04/17 Type of Consultation: Pulmonary Subjective Patient comfortable with going no new events. Objective Vital Signs Date Time Temp Pulse Resp B/P Pulse Ox O2 Delivery O2 Flow Rate FiO2 02/10/17 10:21 Nasal Cannula 2.0 02/10/17 07:54 98.1 97 20 108/59 93 02/07/17 09:25 21 Intake and Output 02/09/17 02/09/17 02/10/17 15:00 23:00 07:00 Intake Total 900 ml Balance 900 ml Exam GENERAL: VITAL SIGNS: per chart NECK: Supple. No JVD or lymphadenopathy. CARDIAC EXAM: S1, S2. No added sounds or murmurs. CHEST: clear bilaterally, No added sounds, rales or wheezes ABDOMEN: Soft, nontender. No guarding or rebound. EXTREMITIES: No cyanosis, clubbing or edema. NEUROLOGIC: Generalized weakness. No focal deficits. Well-nourished well- developed elderly lady comfortable at rest Results/Medications Result Diagram: 02/06/17 0655 02/09/17 0436 Medications Current Medications Lorazepam (Ativan) 0.5 mg Q8H PRN PO ANXIETY Last administered on 02/09/17 20: 36; Admin Dose 0.5 MG; Start 02/04/17 at 05:30 Ondansetron HCl (Zofran Inj) 4 mg Q6H PRN IV NAUSEA AND/OR VOMITING; Start 02/04 at 05:30 Acetaminophen (Tylenol Tab) 650 mg Q6H PRN PO PAIN LEVEL 1-3 OR FEVER; Start at 05:30 Acetaminophen/ Hydrocodone Bitart (Vidor (5/325)) 1 tab Q6H PRN PO pain 4-10; Start 02/04/17 at 05:30 Heparin Sodium (Porcine) (Heparin (5000 Units/0.5 ml)) 5,000 unit Q12 SC Last administered on 02/10/17 10:10; Admin Dose 5,000 UNIT; Start 02/04/17 at 09:00 Multivitamins Therapeutic (Theragran) 1 tab DAILY PO Last administered on 10:11; Admin Dose 1 TAB; Start 02/04/17 at 09:00 Calcium/Vitamin D (Oyster Shell/ Vit-D (500/200)) 1 tab BID PO Last administered on 02/10/17 10:11; Admin Dose 1 TAB; Start 02/04/17 at 09:00 Metoprolol Succinate (Toprol Xl) 25 mg DAILY PO Last administered on 02/10/17 10:12; Admin Dose 25 MG; Start 02/06/17 at 11:30 Levofloxacin (Levaquin) 750 mg Q48H PO Last administered on 02/09/17 11:35; Admin Dose 750 MG; Start 02/07/17 at 11:00 Assessment/Plan Chief Complaint/Hosp Course IMP: 1. CHF. 2. Community-acquired pneumonia RECS: 1. No further need for antibiotics 2. PaO2 is borderline. 3. Discharge today. Family declined correction facility want to take patient home. 4. Follow-up with me as an outpatient Problems: DENISE KELLEY MD, [facility] Feb 10, 2017 13:21
== END 2017-02-10 13:56 | disposition home health service (06) | DRG 871 ==
LOC: E/R 19:15 → MS3 23:22 → MS4 02-04 15:25 → PP2 02-07 14:15
PROVIDERS: ADMIT Internal Medicine; ATTEND Internal Medicine
PROC: 4A033R1 Measurement of Arterial Saturation, Peripheral, Percutaneous Approach (ICD-10-PCS; principal; 2017-02-08)
DX: A41.9 Sepsis, unspecified organism (principal); J18.9 Pneumonia, unspecified organism; N17.9 Acute kidney failure, unspecified; E87.0 Hyperosmolality and hypernatremia; I13.0 Hypertensive heart and chronic kidney disease with heart failure and stage 1 through stage 4 chronic kidney disease, or unspecified chronic kidney disease; I50.32 Chronic diastolic (congestive) heart failure; D64.9 Anemia, unspecified; N18.9 Chronic kidney disease, unspecified; D72.819 Decreased white blood cell count, unspecified
CPT/HCPCS: 36415; 36600; 71010; 71275; 76775; 80048; 80053; 81003; 82043; 82550; 82553; 82803; 83735; 83880; 84100; 84155; 84300; 84484; 85025; 85610; 85730; 87040; 93005; 93306; 94640; 94664; 96374; 96375; 97162; J1644; J1940; J1956; J2543; J3370; J7030; P9047; Q9967